=== PATIENT | female | born 1975 | race Two or more races ===

== ENCOUNTER 2017-09-12 19:49 | Emergency (ER) | payer MEDICARE, MEDICAID ==
[~2017-09-12] VITALS: Ht 167.6 cm; Wt 58.1 kg
[~2017-09-12 19:49] MED LIST: ATOR20TA PO; FLUO10CA15 PO; FURO80TA PO; HYDR-1421 PO; LEVO100T8 PO; METO25TA5 PO; NITR-52 PO; PRO125RS; ZOLP10TA PO
[2017-09-12 20:51] VITALS: BP 117/74
[2017-09-12 23:09] LABS: Basophils # (auto) 0 uL; Basophils % (auto) 0.9 % (0.0-2.0); Eosinophils # (auto) 0.2 uL; Eosinophils % (auto) 3.5 % (0.0-7.0); Hematocrit 36.6 % (36.0-46.0); Hemoglobin 11.4 g/dL (12.2-16.2); Lymphocytes # (auto) 0.5 uL; Lymphocytes % (auto) 10.4 % (10.0-50.0); Mean Corpuscular Hemoglobin 24.6 pg (28.0-32.0); Mean Corpuscular Volume 79.4 fL (80.0-100.0); Monocytes # (auto) 0.9 uL; Monocytes % (auto) 17.7 % (0.0-12.0); Neutrophils # (auto) 3.4 uL; Neutrophils % (auto) 67.5 % (37.0-80.0); Nucleated Red Blood Cells % 0.1 %; Platelet Count (auto) 174 10^3/uL (140-450); Red Blood Cells 4.61 10^6/uL (4.0-5.20); White Blood Cell 5.1 10^3/uL (4.4-10.8)
[2017-09-12 23:11] LABS: Albumin 3.9 g/dL (3.4-5.0); BUN/Creatinine Ratio 19.3; Calcium 8.4 mg/dL (8.5-10.1); Magnesium 2.4 mg/dL (1.6-2.6); Potassium 3.2 mmol/L (3.5-5.1)
[2017-09-12 23:20] LABS: Red Cell Distribution Width 30.4 % (11.8-14.3)
[2017-09-12 23:30] LABS: Total Protein 7.2 g/dL (6.4-8.2)
[2017-09-12] MEDS ORDERED: POTASSIUM CHL 10% (20 MEQ/15ML) 15ml ORAL SOLN PO ONE (23:45)
[2017-09-12 23:48] LABS: Bilirubin, Total 0.2 mg/dL (0.2-1.0)
[2017-09-13] MEDS ORDERED: POTASSIUM CHL 10% (20 MEQ/15ML) 15ml ORAL SOLN PO ONE (00:30)
== END 2017-09-13 02:43 | disposition left against medical advice (07) ==
LOC: ER 19:49
DX: E87.6 Hypokalemia (principal); R07.89 Other chest pain; I50.9 Heart failure, unspecified; E11.9 Type 2 diabetes mellitus without complications; E78.5 Hyperlipidemia, unspecified; Z90.49 Acquired absence of other specified parts of digestive tract; Z98.51 Tubal ligation status; Z87.891 Personal history of nicotine dependence; Z88.6 Allergy status to analgesic agent; Z88.8 Allergy status to other drugs, medicaments and biological substances
CPT/HCPCS: 36415; 71046; 80053; 83735; 83880; 84484; 85025; 93005

== ENCOUNTER 2017-11-28 19:05 | Emergency (ER) | payer MEDICARE, MEDICAID ==
[~2017-11-28] VITALS: Ht 157.5 cm; Wt 61.2 kg
[2017-11-28 20:13] LABS: Basophils # (auto) 0.1 uL; Basophils % (auto) 1.2 % (0.0-2.0); Eosinophils # (auto) 0.2 uL; Eosinophils % (auto) 3.9 % (0.0-7.0); Hemoglobin 9.2 g/dL (12.2-16.2); Lymphocytes # (auto) 0.9 uL; Lymphocytes % (auto) 21.2 % (10.0-50.0); Mean Corpuscular Hemoglobin 27.3 pg (28.0-32.0); Mean Corpuscular Hgb Conc. 31.9 g/dL (32.0-36.0); Mean Corpuscular Volume 85.5 fL (80.0-100.0); Monocytes # (auto) 0.5 uL; Monocytes % (auto) 10.6 % (0.0-12.0); Neutrophils # (auto) 2.7 uL; Neutrophils % (auto) 63.1 % (37.0-80.0); Platelet Count (auto) 233 10^3/uL (140-450); Red Blood Cells 3.39 10^6/uL (4.0-5.20); Red Cell Distribution Width 16.2 % (11.8-14.3); White Blood Cell 4.4 10^3/uL (4.4-10.8)
[2017-11-28 20:28] LABS: Albumin 3.5 g/dL (3.4-5.0); BUN/Creatinine Ratio 17.8; Calcium 8.5 mg/dL (8.5-10.1); Potassium 3.4 mmol/L (3.5-5.1)
[2017-11-28 20:29] LABS: Urine Bacteria FEW /hpf (None Seen); Urine Blood Negative /uL (Negative); Urine Specific Gravity 1.009 (1.001-1.035); Urine WBC <1 /hpf (0 - 5)
[2017-11-28 20:31] LABS: Bilirubin, Total 0.2 mg/dL (0.2-1.0); Total Protein 6.4 g/dL (6.4-8.2)
[2017-11-29] MEDS ORDERED: ONDANSETRON ODT 4 MG TAB PO ONE (01:00)
[2017-11-29] MEDS ORDERED: NALBUPHINE HCL 10 MG/1ml INJECTION IM ONE (01:00)
[2017-11-29 01:52] VITALS: BP 123/71
== END 2017-11-29 03:32 | disposition home or self-care (01) ==
LOC: ER 19:07
DX: R10.31 Right lower quadrant pain (principal); I50.9 Heart failure, unspecified; E11.9 Type 2 diabetes mellitus without complications; E78.5 Hyperlipidemia, unspecified; E07.89 Other specified disorders of thyroid; Z88.6 Allergy status to analgesic agent; Z88.8 Allergy status to other drugs, medicaments and biological substances; Z90.49 Acquired absence of other specified parts of digestive tract; Z98.51 Tubal ligation status; Z95.0 Presence of cardiac pacemaker; Z79.899 Other long term (current) drug therapy
CPT/HCPCS: 36415; 74176; 80053; 81001; 82150; 83690; 85025; 96372; 99285; J2300; Q0162

== ENCOUNTER 2018-01-23 14:34 | Emergency (ER) | payer MEDICARE, MEDICAID ==
[~2018-01-23] VITALS: Ht 157.5 cm; Wt 59.0 kg
[2018-01-23 15:47] LABS: Urine Bacteria NONE SEEN /hpf (None Seen); Urine Blood Negative /uL (Negative); Urine Mucus FEW (None Seen); Urine Specific Gravity 1.024 (1.001-1.035); Urine WBC <1 /hpf (0 - 5)
[2018-01-23] MEDS ORDERED: SODIUM CHLORIDE 0.9% 1,000 ML IV ONE (16:27)
[2018-01-23] MEDS ORDERED: traMADol HCL 50 MG TAB PO ONE (16:30)
[2018-01-23 17:16] LABS: Eosinophils # (auto) 0.1 uL; Eosinophils % (auto) 0.9 % (0.0-7.0); Hemoglobin 10.9 g/dL (12.2-16.2); Lymphocytes # (auto) 0.6 uL; Mean Corpuscular Hemoglobin 25.1 pg (28.0-32.0); Mean Corpuscular Hgb Conc. 31.1 g/dL (32.0-36.0); Red Blood Cells 4.34 10^6/uL (4.0-5.20)
[2018-01-23 17:18] LABS: Basophils # (auto) 0 uL; Basophils % (auto) 0.8 % (0.0-2.0); Lymphocytes % (auto) 8.7 % (10.0-50.0); Mean Corpuscular Volume 80.6 fL (80.0-100.0); Monocytes # (auto) 0.5 uL; Monocytes % (auto) 7.3 % (0.0-12.0); Neutrophils # (auto) 5.3 uL; Neutrophils % (auto) 82.3 % (37.0-80.0); Nucleated Red Blood Cells % 0.1 %; Platelet Count (auto) 292 10^3/uL (140-450); Red Cell Distribution Width 18.3 % (11.8-14.3); White Blood Cell 6.4 10^3/uL (4.4-10.8)
[2018-01-23 17:34] LABS: Alanine Aminotransferase 30 U/L (13-56); Anion Gap 9 (5-15); Aspartate Aminotransferase 30 U/L (15-37); BUN/Creatinine Ratio 19.5; Blood Urea Nitrogen 15 mg/dL (7-18); Calcium 8.4 mg/dL (8.5-10.1); Carbon Dioxide 27 mmol/L (21-32); Chloride 105 mmol/L (98-107); GFR African American 106 mL/min; GFR Non-African American 88 mL/min; Glucose 90 mg/dL (74-106); Potassium 4.1 mmol/L (3.5-5.1); Sodium 141 mmol/L (136-145)
[2018-01-23 17:40] LABS: Alkaline Phosphatase 119 U/L (45-117); Bilirubin, Total 0.3 mg/dL (0.2-1.0); Total Protein 7.8 g/dL (6.4-8.2)
[2018-01-23 17:44] LABS: INR 0.87 (0.9-1.15); Partial Thromboplastin Time 23.8 sec (22.64-33.71); Prothrombin Time 9.5 sec (9.37-12.3)
[2018-01-24] MEDS ORDERED: HYDROcodone-ACET 10/325MG TAB PO ONE (02:00)
[2018-01-24] MEDS ORDERED: LORazepam 0.5 MG TAB PO ONE (03:00)
[2018-01-24 03:38] VITALS: BP 151/101
== END 2018-01-24 04:16 | disposition home or self-care (01) ==
LOC: ER 14:40
DX: F41.9 Anxiety disorder, unspecified (principal); R10.9 Unspecified abdominal pain; I11.0 Hypertensive heart disease with heart failure; I50.9 Heart failure, unspecified; E11.9 Type 2 diabetes mellitus without complications; E78.5 Hyperlipidemia, unspecified; E07.9 Disorder of thyroid, unspecified; Z98.51 Tubal ligation status; Z87.891 Personal history of nicotine dependence; Z90.49 Acquired absence of other specified parts of digestive tract; Z88.6 Allergy status to analgesic agent; Z95.0 Presence of cardiac pacemaker; Z98.84 Bariatric surgery status; Z79.899 Other long term (current) drug therapy
CPT/HCPCS: 36415; 71046; 74176; 80053; 81001; 84484; 85025; 85610; 85730

== ENCOUNTER → 2018-04-17 | Outpatient (CLI) | payer MEDICARE, MEDICAID ==
[2018-04-17 10:14] LABS: Basophils # (auto) 0.1 uL; Eosinophils # (auto) 0.1 uL; Hemoglobin 9.8 g/dL (12.2-16.2); Lymphocytes # (auto) 0.6 uL; Mean Corpuscular Hemoglobin 24.3 pg (28.0-32.0); Monocytes # (auto) 0.3 uL; Neutrophils # (auto) 1.7 uL; Red Blood Cells 4.03 10^6/uL (4.0-5.20); White Blood Cell 2.7 10^3/uL (4.4-10.8)
[2018-04-17 10:18] LABS: Basophils % (auto) 2.6 % (0.0-2.0); Eosinophils % (auto) 2.1 % (0.0-7.0); Hematocrit 31.1 % (36.0-46.0); Lymphocytes % (auto) 21.5 % (10.0-50.0); Mean Corpuscular Hgb Conc. 31.5 g/dL (32.0-36.0); Mean Corpuscular Volume 77.2 fL (80.0-100.0); Monocytes % (auto) 10.1 % (0.0-12.0); Neutrophils % (auto) 63.7 % (37.0-80.0); Platelet Count (auto) 330 10^3/uL (140-450); Red Cell Distribution Width 17.2 % (11.8-14.3)
[2018-04-17 10:22] LABS: Urine Blood Negative /uL (Negative); Urine Specific Gravity 1.019 (1.001-1.035)
== END | disposition home or self-care (01) ==
LOC: LAB 09:39
PROVIDERS: ATTEND Internal Medicine
DX: I11.0 Hypertensive heart disease with heart failure (principal); I50.9 Heart failure, unspecified; E78.2 Mixed hyperlipidemia; Z87.891 Personal history of nicotine dependence; Z90.721 Acquired absence of ovaries, unilateral; Z86.73 Personal history of transient ischemic attack (TIA), and cerebral infarction without residual deficits; Z88.6 Allergy status to analgesic agent; Z88.8 Allergy status to other drugs, medicaments and biological substances; Z79.899 Other long term (current) drug therapy
CPT/HCPCS: 36415; 81003; 82306; 84443; 85025

== ENCOUNTER 2018-04-23 11:05 | Emergency (ER) | payer MEDICARE, MEDICAID ==
[~2018-04-23] VITALS: Ht 157.5 cm; Wt 68.0 kg
[2018-04-23 12:26] LABS: Urine WBC None Seen /hpf (0 - 5)
[2018-04-23 12:43] LABS: Urine Bacteria NONE SEEN /hpf (None Seen); Urine Blood Negative /uL (Negative); Urine Specific Gravity 1.007 (1.001-1.035)
[2018-04-23 12:44] LABS: Basophils # (auto) 0.1 uL; Eosinophils # (auto) 0.1 uL; Hemoglobin 8.5 g/dL (12.2-16.2); Lymphocytes # (auto) 0.6 uL; Mean Corpuscular Hemoglobin 23.7 pg (28.0-32.0); Monocytes # (auto) 0.4 uL; Neutrophils # (auto) 2.6 uL
[2018-04-23 12:46] LABS: Basophils % (auto) 1.6 % (0.0-2.0); Eosinophils % (auto) 2.5 % (0.0-7.0); Hematocrit 27.5 % (36.0-46.0); Lymphocytes % (auto) 16.6 % (10.0-50.0); Mean Corpuscular Hgb Conc. 30.7 g/dL (32.0-36.0); Mean Corpuscular Volume 77.1 fL (80.0-100.0); Monocytes % (auto) 9.8 % (0.0-12.0); Neutrophils % (auto) 69.5 % (37.0-80.0); Nucleated Red Blood Cells % 0.1 %; Platelet Count (auto) 236 10^3/uL (140-450); Red Blood Cells 3.57 10^6/uL (4.0-5.20); Red Cell Distribution Width 17.2 % (11.8-14.3); White Blood Cell 3.7 10^3/uL (4.4-10.8)
[2018-04-23 13:29] LABS: Albumin 3.1 g/dL (3.4-5.0); Anion Gap 9 (5-15); BUN/Creatinine Ratio 18.3; Blood Urea Nitrogen 13 mg/dL (7-18); Calcium 7.7 mg/dL (8.5-10.1); Carbon Dioxide 25 mmol/L (21-32); Chloride 109 mmol/L (98-107); GFR African American 117 mL/min; GFR Non-African American 96 mL/min; Glucose 65 mg/dL (74-106); Potassium 3.7 mmol/L (3.5-5.1); Sodium 143 mmol/L (136-145)
[2018-04-23 13:35] VITALS: BP 124/90
[2018-04-23 13:39] LABS: Alanine Aminotransferase 20 U/L (13-56); Alkaline Phosphatase 78 U/L (45-117); Aspartate Aminotransferase 19 U/L (15-37); Bilirubin, Total 0.4 mg/dL (0.2-1.0); Total Protein 6.1 g/dL (6.4-8.2)
== END 2018-04-23 15:14 | disposition home or self-care (01) ==
LOC: ER 11:07
DX: R07.89 Other chest pain (principal); D64.9 Anemia, unspecified; I11.0 Hypertensive heart disease with heart failure; I10 Essential (primary) hypertension; E11.9 Type 2 diabetes mellitus without complications; E78.5 Hyperlipidemia, unspecified; Z86.73 Personal history of transient ischemic attack (TIA), and cerebral infarction without residual deficits; Z90.49 Acquired absence of other specified parts of digestive tract; Z98.51 Tubal ligation status; Z87.891 Personal history of nicotine dependence
CPT/HCPCS: 36415; 80053; 81001; 84484; 85025; 93005

== ENCOUNTER 2018-08-17 16:18 | Emergency (ER) | payer MEDICARE, MEDICAID ==
[~2018-08-17] VITALS: Ht 157.5 cm; Wt 68.0 kg
[2018-08-17 17:01] LABS: Basophils # (auto) 0.1 uL; Eosinophils # (auto) 0 uL; Monocytes # (auto) 0.5 uL; Red Cell Distribution Width 19.4 % (11.8-14.3)
[2018-08-17 17:03] LABS: Basophils % (auto) 1.1 % (0.0-2.0); Eosinophils % (auto) 0.1 % (0.0-7.0); Hematocrit 30.1 % (36.0-46.0); Hemoglobin 9.2 g/dL (12.2-16.2); Lymphocytes # (auto) 0.6 uL; Lymphocytes % (auto) 9.5 % (10.0-50.0); Mean Corpuscular Hemoglobin 21.9 pg (28.0-32.0); Mean Corpuscular Hgb Conc. 30.5 g/dL (32.0-36.0); Mean Corpuscular Volume 71.6 fL (80.0-100.0); Monocytes % (auto) 7.5 % (0.0-12.0); Neutrophils # (auto) 5.2 uL; Neutrophils % (auto) 81.8 % (37.0-80.0); Platelet Count (auto) 276 10^3/uL (140-450); White Blood Cell 6.3 10^3/uL (4.4-10.8)
[2018-08-17 17:23] LABS: Albumin 4.1 g/dL (3.4-5.0); BUN/Creatinine Ratio 18.2; Calcium 8.5 mg/dL (8.5-10.1); Potassium 3.5 mmol/L (3.5-5.1)
[2018-08-17 17:25] LABS: Bilirubin, Total 0.4 mg/dL (0.2-1.0); Total Protein 7.6 g/dL (6.4-8.2)
[2018-08-17 18:12] LABS: Urine Bacteria NONE SEEN /hpf (None Seen); Urine Blood Negative /uL (Negative); Urine Mucus FEW (None Seen); Urine Specific Gravity 1.023 (1.001-1.035); Urine WBC 1 /hpf (0 - 5)
[2018-08-17] MEDS ORDERED: SODIUM CHLORIDE 0.9% 1,000 ML IVB ONE (18:19)
[2018-08-17] MEDS ORDERED: ONDANSETRON HCL 4 MG/2 ML VIAL IV ONE (18:30)
[2018-08-17 19:19] LABS: INR 0.9 (0.9-1.15); Magnesium 2.4 mg/dL (1.6-2.6); Partial Thromboplastin Time 23.3 sec (23.78-33.04); Prothrombin Time 9.7 sec (9.27-12.13)
[2018-08-17] MEDS ORDERED: KETOROLAC TROMETH 30 MG/ML 1ML VIAL IV ONE (20:45)
[2018-08-17] MEDS ORDERED: PROMETHAZINE HCL 25 MG/ML 1ML IV ONE (20:45)
[2018-08-17 23:05] VITALS: BP 120/69
== END 2018-08-17 23:08 | disposition home or self-care (01) ==
LOC: ER 16:25
DX: R10.30 Lower abdominal pain, unspecified (principal); D50.9 Iron deficiency anemia, unspecified; I11.0 Hypertensive heart disease with heart failure; I50.9 Heart failure, unspecified; E07.89 Other specified disorders of thyroid; Z88.6 Allergy status to analgesic agent; Z88.8 Allergy status to other drugs, medicaments and biological substances; Z90.49 Acquired absence of other specified parts of digestive tract; Z98.51 Tubal ligation status; Z95.0 Presence of cardiac pacemaker
CPT/HCPCS: 36415; 74176; 80053; 81001; 81025; 82150; 83690; 83735; 83880; 85025; 85610; 85730; 94761; 96361; 96374; 96375; 99284; J1885; J2405; J2550; J7030

== ENCOUNTER 2019-10-24 13:28 | Emergency (ER) | payer MEDICARE, MEDICAID ==
[~2019-10-24] VITALS: Ht 160 cm; Wt 73.5 kg
[~2019-10-24 13:28] MED LIST changes: +FURO1TAB32 PO; -FURO80TA PO
[2019-10-24] MEDS ORDERED: MORPHINE SULFATE 4 MG/ML SYR/VIAL IV ONE (14:00)
[2019-10-24] MEDS ORDERED: ONDANSETRON HCL 4 MG/2 ML VIAL IV ONE (14:00)
[2019-10-24] MEDS ORDERED: methylPREDNISolone SOD SUCC 125 MG/2 ML VL IV ONE (14:00)
[2019-10-24 14:21] LABS: Basophils # (auto) 0 uL; Eosinophils # (auto) 0 uL; Hemoglobin 9.7 g/dL (12.2-16.2); Lymphocytes # (auto) 1.1 uL; Monocytes # (auto) 0.6 uL; Neutrophils # (auto) 3.6 uL; Nucleated Red Blood Cells % 0.1 %; White Blood Cell 5.4 10^3/uL (4.4-10.8)
[2019-10-24 14:25] LABS: Basophils % (auto) 0.9 % (0.0-2.0); Eosinophils % (auto) 0.6 % (0.0-7.0); Hematocrit 31.5 % (36.0-46.0); Lymphocytes % (auto) 20.6 % (10.0-50.0); Mean Corpuscular Hgb Conc. 30.9 g/dL (32.0-36.0); Mean Corpuscular Volume 80.8 fL (80.0-100.0); Monocytes % (auto) 11.2 % (0.0-12.0); Neutrophils % (auto) 66.7 % (37.0-80.0); Platelet Count (auto) 313 10^3/uL (140-450)
[2019-10-24 14:41] LABS: Albumin 3.7 g/dL (3.4-5.0); Anion Gap 5 (5-15); Blood Urea Nitrogen 10 mg/dL (7-18); Calcium 8.7 mg/dL (8.5-10.1); Carbon Dioxide 25 mmol/L (21-32); Chloride 111 mmol/L (98-107); Glucose 88 mg/dL (74-106); Magnesium 2.5 mg/dL (1.6-2.6); Sodium 141 mmol/L (136-145)
[2019-10-24 14:46] LABS: Alanine Aminotransferase 24 U/L (13-56); Alkaline Phosphatase 88 U/L (45-117); Aspartate Aminotransferase 19 U/L (15-37); BUN/Creatinine Ratio 11.1; Bilirubin, Total 0.3 mg/dL (0.2-1.0); GFR African American 88 mL/min; GFR Non-African American 73 mL/min; Total Protein 7.2 g/dL (6.4-8.2)
[2019-10-24 16:00] VITALS: BP 128/85
[2019-10-24] MEDS ORDERED: diphenhdrAMINE HCL 50 MG/1 ML VL IV ONE (16:45)
== END 2019-10-24 17:40 | disposition home or self-care (01) ==
LOC: ER 13:34
DX: R07.89 Other chest pain (principal); I11.0 Hypertensive heart disease with heart failure; I50.9 Heart failure, unspecified; E78.5 Hyperlipidemia, unspecified; I25.2 Old myocardial infarction; Z86.73 Personal history of transient ischemic attack (TIA), and cerebral infarction without residual deficits; Z98.51 Tubal ligation status; Z90.49 Acquired absence of other specified parts of digestive tract; Z95.0 Presence of cardiac pacemaker; Z88.8 Allergy status to other drugs, medicaments and biological substances; Z88.6 Allergy status to analgesic agent; Z79.899 Other long term (current) drug therapy
CPT/HCPCS: 36415; 71046; 80053; 83735; 83880; 84484; 85025; 93005; 96374; 96375; 99285; J1200; J2270; J2405; J2930

== ENCOUNTER 2020-12-09 15:48 | Emergency (ER) | payer MEDICARE, MEDICAID ==
[~2020-12-09] VITALS: Ht 160 cm; Wt 63.0 kg
[2020-12-09 15:51] VITALS: BP 113/89
[2020-12-09 16:53] LABS: Basophils # (auto) 0.1 10 ^3/uL (0-0.2); Basophils % (auto) 0.9 % (0.0-2.0); Eosinophils # (auto) 0.1 10 ^3/uL (0-0.8); Eosinophils % (auto) 1.4 % (0.0-7.0); Hematocrit 32.6 % (36.0-46.0); Hemoglobin 10.7 g/dL (12.2-16.2); Lymphocytes # (auto) 0.7 10 ^3/uL (0.4-5.4); Mean Corpuscular Hemoglobin 28.7 pg (28.0-32.0); Monocytes # (auto) 0.4 10 ^3/uL (0-1.3); Monocytes % (auto) 5.5 % (0.0-12.0); Neutrophils # (auto) 5.5 10 ^3/uL (1.6-8.6); Neutrophils % (auto) 82.2 % (37.0-80.0); Nucleated Red Blood Cells % 0.1 %; Platelet Count (auto) 228 10^3/uL (140-450); Red Blood Cells 3.75 10^6/uL (4.0-5.20); Red Cell Distribution Width 16.6 % (11.8-14.3); White Blood Cell 6.6 10^3/uL (4.4-10.8)
[2020-12-09 17:15] LABS: Alanine Aminotransferase 21 U/L (13-56); Albumin 3.8 g/dL (3.4-5.0); Anion Gap 8 (5-15); Aspartate Aminotransferase 22 U/L (15-37); BUN/Creatinine Ratio 14.4; Blood Urea Nitrogen 13 mg/dL (7-18); Calcium 8.1 mg/dL (8.5-10.1); Carbon Dioxide 27 mmol/L (21-32); Chloride 103 mmol/L (98-107); GFR African American 88 mL/min; GFR Non-African American 73 mL/min; Glucose 94 mg/dL (74-106); Potassium 3.4 mmol/L (3.5-5.1); Sodium 138 mmol/L (136-145)
[2020-12-09 17:17] LABS: INR 1.01 (0.9-1.15); Partial Thromboplastin Time 24.8 sec (23.0-31.2)
[2020-12-09 17:24] LABS: Alkaline Phosphatase 103 U/L (45-117); Bilirubin, Total 0.2 mg/dL (0.2-1.0); Total Protein 6.7 g/dL (6.4-8.2)
== END 2020-12-09 19:05 | disposition left against medical advice (07) ==
LOC: ER 15:48
DX: R07.9 Chest pain, unspecified (principal); R11.0 Nausea; Z53.21 Procedure and treatment not carried out due to patient leaving prior to being seen by health care provider
CPT/HCPCS: 36415; 71046; 80053; 83735; 84484; 85025; 85610; 85730; 93005

== ENCOUNTER 2024-08-05 20:12 | Inpatient (IN) | payer MEDICARE, MEDICAID ==
[~2024-08-05] VITALS: Ht 160 cm; Wt 58.2 kg
[2024-08-05 20:40] LABS: Urine Bacteria None Seen /hpf (None Seen)
--- NOTE | 2024-08-05 20:45 | ED.PDOC ---
HPI Comments PMHx: CHF, TIA, DC, CVA, angina, HTN, lupus, anemia, thyroid, HLD PSHx: pacemaker, partial hysterectomy, , tubal ligation. cholecystectomy Social hx: Pt denies alcohol, tobacco, and illicit drug use Meds: Entresto, Simvastatin, Metoprolol, Plaquenil, Carvedilol, Morphine, Zofran, muscle relaxers Allergies: Reglan, Tramadol, ASA, Motrin, Vitals T: 99.1F RR: 14 HR: 97 BP: 146/111 O2: 97% on RA HPI: Poor Historian. This 49-year-old female presents with a one day history of midsternal chest pain with some radiation to the left neck. Patient has associated vomiting and dizziness and diaphoresis at that time. This happened at rest. No particular alleviating or precipitating factors. She says she has similar chest pains in the past but never this severe. She follows up with cardiology and states compliance with all her medications. REVIEW OF SYSTEMS: CONSTITUTIONAL: Denies acute: fever, chills, generalized weakness. HEAD: Denies acute: headache, photophobia Eyes: Denies acute: Double vision, vision loss, eye pain, eye discharge. EARS: Denies acute: tinnitus, hearing loss, ear discharge, ear pain, THROAT: Denies acute: sore throat, swelling, difficulty swallowing , pain with swallowing, change in voice. NECK: Denies acute: neck pain, neck swelling, stiff neck. HEART: Denies acute : palpitations, LUNGS: Denies acute: SOB, wheezing, cough, hemoptysis ABDOMEN: Denies acute: abdominal pain, Nausea, diarrhea, melena , hematemesis, hematochezia SKIN: Denies acute: rash, redness, lesions, itchiness. EXTREMITIES: Denies acute: calf pain, numbness, tingling, weakness, denies pain in extremity. Denies acute: Low back pain. Neuro: Denies acute: focal neurological deficit, motor or sensory focal neurological deficit, tremors, seizure like activity, confusion, change in mental status, loss of bowel or bladder function, cauda equina like symptoms. : Denies acute: dysuria, hematuria, flank pain, increase in urinary frequency. PSYCH: Denies acute: hallucination, suicidal ideation, homicidal ideation. FEMALE: Denies acute: abnormal vaginal bleeding, foul odor, unusual discharge. PHYSICAL EXAM: General: no acute distress, awake and alert. Head: normocephalic, atraumatic. Neck: supple, trachea is midline, no swelling. Throat: Normal phonation. Eyes:, no erythema, no purulent discharge, no proptosis, no icterus. Heart: regular rate, regular rhythm, no significant murmur appreciated. Lungs: no apparent respiratory distress, Able to speak in full sentences. No wheezing, no rhonchi, no crackles. No stridors Clear to auscultation bilaterally. Abdomen: non tender to palpation, non distended, soft, no guarding, no rebound, + bowel sounds. Neuro: Awake, Alert, oriented to name, self, situation, follows commands GCS=15. Speech is normal. Skin: no petechia, no purpura, no cyanosis, non-pale, not jaundice. Lower extremities: --no - Pitting edema no deformity, no focal swelling, no calf TTP. Patient is wearing a left lower extremity ankle boot. History of recent ankle fracture. Makes eye contact. moves all four extremities. Face: no apparent facial droop. Ambulating in the ED independently. Chief Complaint: Chest Pain Time Seen by MD: 20:38 Primary Care Provider: tonya Reviewed Notes: Nurses Notes, Medications, Allergies Allergies: Coded Allergies: Aspirin (Verified Allergy, Severe, 06/19/11) Metoclopramide (Verified Allergy, Intermediate, 06/18/11) Tramadol (Verified Allergy, Intermediate, 06/18/11) Home Meds Active Scripts Nitrofurantoin (Nitrofurantoin) 100 Mg Cap, 1 CAP PO BID, #10 CAP Prov:ALLIE MENDEZ MD 08/19/17 Reported Medications Fluoxetine Hcl (Pmdd) (Fluoxetine) 10 Mg Cap, 1 CAP PO DAILY, #30 CAP 2 Refills 08/18/17 Zolpidem Tartrate (Ambien) 10 Mg Tab, 1 TAB PO QPM, #30 TAB 5 Refills 08/18/17 Levothyroxine Sodium (Levothyroxine Sodium) 100 Mcg Tab, 100 MCG PO QAM for 30 Days, MCG 08/18/17 Metoprolol Tartrate (Metoprolol Tartrate) 25 Mg Tab, 25 MG PO BID for 30 Days, MG 12/8/17 Atorvastatin Calcium (Lipitor) 20 Mg Tab, 1 TAB PO DAILY, #90 TAB 1 Refill 08/18/17 Furosemide (Lasix) 80 Mg Tab, 80 MG PO DAILY, TAB 08/18/17 Promethazine Hcl (Promethegan) 12.5 Mg Sup 07/18/12 Hydrocodone-Acetaminophen (Vicodin) 1 Tab Tab, 1 MG PO PRN for MILD PAIN OR TEMP>100.4 07/18/12 Information Source: Patient Mode of Arrival: Ambulatory Severity: Mild Timing: Hours Duration: Since onset Location: Substernal Radiation: Neck (left) Quality: Other Onset: At Rest Cardiac Risk Factors: Hyperlipidemia, HTN PE Risk Factors: None History of: Similar pain in past, DC, Angina Modifying Factors: Nothing Associated Signs and Symptoms: Other Past Medical History PAST MEDICAL HISTORY: Angina, CHF, CVA, High Lipids, HTN, DC, Thyroid, TIA Surgical History: BTL, Cholecystectomy, , Pacemaker, Tubal Ligation CARE SERVICES MANAGER History: No Pertinent CARE SERVICES MANAGER History Family History Family History: Family hx of Cancer Family History (Other): SLE Social History Smoker: Non-Smoker, Quit Greater Than 1 Year Alcohol: Denies ETOH Use Drugs: Denies Drug Use Lives In: Home Was a procedure done? Was a procedure done?: No CP Differential Dx Differential Diagnosis: Anxiety / Panic Attack, Electrolyte Disorder, Heart Failure, N/A Differential Diagnosis: Other (Ddx include but not limitied to gastritis, musculoskeletal pain, radiculopathy, atypical chest pain, dissection, aneurysm, ACS, unstable angina, hiatal hernia, GERD, anxiety, costochondritis, PE, pneumothroax, neoplasm, cardiac ischemia, drug abuse, anemia.) X-Ray, Labs, Meds, VS Vital Signs Date Time Temp Pulse Resp B/P (MAP) Pulse Ox O2 Delivery O2 Flow Rate FiO2 08/05/24 22:06 92 08/05/24 20:27 99.1 97 14 146/111 (123) 97 08/05/24 20:18 91 Lab Test 08/05/24 21:32 08/05/24 21:29 08/05/24 20:39 08/05/24 20:30 Range/Units Lactic Acid Level 1.7 0.4-2.0 mmol/L Troponin I High Sensitivity 3 L 4 </=34 ng/L White Blood Count 11.7 H 4.4-10.8 10^3/uL Red Blood Count 4.97 4.0-5.20 10^6/uL Hemoglobin 11.8 L 12.2-16.2 g/dL Hematocrit 37.4 36.0-46.0 % Mean Corpuscular Volume 75.3 L 80.0-100.0 fL Mean Corpuscular Hemoglobin 23.7 L 28.0-32.0 pg Mean Corpuscular Hemoglobin Concent 31.5 L 32.0-36.0 g/dL Red Cell Distribution Width 18.2 H 11.8-14.3 % Platelet Count 308 140-450 10^3/uL Mean Platelet Volume 7.5 6.9-10.8 fL Neutrophils (%) (Auto) 85.2 H 37.0-80.0 % Lymphocytes (%) (Auto) 9.8 L 10.0-50.0 % Monocytes (%) (Auto) 4.2 0.0-12.0 % Eosinophils (%) (Auto) 0.4 0.0-7.0 % Basophils (%) (Auto) 0.4 0.0-2.0 % Neutrophils # (Auto) 10.0 H 1.6-8.6 10 ^3/uL Lymphocytes # (Auto) 1.1 0.4-5.4 10 ^3/uL Monocytes # (Auto) 0.5 0-1.3 10 ^3/uL Eosinophils # (Auto) 0 0-0.8 10 ^3/uL Basophils # (Auto) 0 0-0.2 10 ^3/uL Nucleated Red Blood Cells 0.0 % Prothrombin Time 10.3 9.3-11.8 sec Prothrombin Time INR 0.97 0.9-1.15 Activated Partial Thromboplast Time 24.5 24.5-34.5 SEC Sodium Level 135 L 136-145 mmol/L Potassium Level 2.9 L 3.5-5.1 mmol/L Chloride Level 96 L 98-107 mmol/L Carbon Dioxide Level 29 20-31 mmol/L Anion Gap 10 5-15 Blood Urea Nitrogen 11 9-23 mg/dL Creatinine 1.04 H 0.550-1.02 mg/dL Glomerular Filtration Rate Calc 67 >90 mL/min BUN/Creatinine Ratio 10.6 10.0-20.0 Serum Glucose 117 H 74-106 mg/dL Calcium Level 10.2 8.7-10.4 mg/dL Magnesium Level 2.2 1.6-2.6 mg/dL Total Bilirubin 0.3 0.2-1.0 mg/dL Aspartate Amino Transferase (AST) 21 13-40 U/L Alanine Aminotransferase (ALT) 30 7-40 U/L Alkaline Phosphatase 173 H 46-116 U/L B-Type Natriuretic Peptide 26.89 0-100 pg/mL Total Protein 7.8 5.7-8.2 g/dL Albumin 5.2 H 3.2-4.8 g/dL Lipase 26 12-53 U/L Urine Color Light-yellow Yellow Urine Clarity Clear Clear Urine pH 6.0 5.0-9.0 Urine Specific [place] 1.010 1.001-1.035 Urine Protein Negative Negative Urine Ketones Negative Negative Urine Blood Negative Negative /uL Urine Nitrite Negative Negative Urine Bilirubin Negative Negative Urine Urobilinogen Normal Negative mg/dL Urine Leukocyte Esterase Negative Negative /uL Urine RBC <1 0 - 4 /hpf Urine WBC 5 0 - 5 /hpf Urine Squamous Epithelial Cells Few <5 /hpf Urine Bacteria None seen None Seen /hpf Urine Glucose Normal Normal mg/dL Urine Opiates Screen Pending Urine Fentanyl Screen Pending Urine Barbiturates Screen Pending Urine Phencyclidine Screen Pending Urine Amphetamines Screen Pending Urine Benzodiazepines Screen Pending Urine Cocaine Screen Pending Urine Cannabinoids Screen Pending [place] [id number] Ph: [phone] DIAGNOSTIC IMAGING Diagnostic Imaging Report : [id number] Signed PATIENT: KAMALA CARLSON ACCT: [id number] UNIT: [id number] : 1975 LOC: ER ROOM / BED: / AGE / SEX: 49 / F ADM STATUS: REG ER SERVICE 18 ORDERING PHYSICIAN: IVELISSE ACEVES MD PROCEDURE(s): CXRP - CHEST PORTABLE REASON: CP ORDER NUMBER(s): [id number], ACCESSION NUMBER(s): [id number] CHEST RADIOGRAPH Indication: CP Technique: Single frontal view of the chest was obtained Comparison: None FINDINGS: Lines and Tubes: Dual-chamber pacemaker in place with pulse generator over the left chest. Lungs: No focal consolidation. Pleura: No effusion. No pneumothorax. Cardiomediastinal contours: Unremarkable Bones: No acute osseous abnormality. IMPRESSION: 1. No acute cardiopulmonary disease. ATED BY: MARLON PETTIT Jr., DO DICTATED DATE/TIME: 08/05/242105 SIGNED BY: MARLON PETTIT Jr., SIGNED DATE/TIME: 08/05/242105 CC: Time of 1ST Reevaluation: 21:08 Reevaluation 1ST: Unchanged Patient Education/Counseling: Diagnosis, Treatment Family Education/Counseling: No Family Present Comments Patient presented with the above HPI.---cardiac---workup was initiated. patient was found with the above mentioned diagnosis. Patient was given: Potassium replacement Patient ED course and VS have been stabilized. Patient has been reassessed in the ED and remained in a stable condition. Pertinent incidental findings were discussed with the patient and/or family. Patient/family voices understanding and is agreeable with plan. Patient has been observed in the ED adequate length of time to insure improvement/stability. patient was admitted to the medicine team for further evaluation and treatment of their presentation. All the reports of any imaging studies that were ordered by myself were reviewed by myself. Departure 1 Departure Time of Disposition: 21:10 Impression: Primary Impression: Chest pain Additional Impression: Hypokalemia Disposition: ADMITTED INPATIENT Admit to: [facility] Condition: Guarded Discharged With: Self Critical Care Note Critical Care Time?: No Heart Score Heart Score: Heart Score Response (Comments) Value History Moderate Suspicious 1 EKG Normal 0 Age 45-64 1 Risk Factors >3 or Hx ASHD 2 Troponin >3 x's Normal limit 2 Total 6 I personally scribed for YAMILET MORALES DO ([email or web address]) on 08/05/24 at 20:45. Electronically submitted by Lashonda Gillespie ([employer]). I personally scribed for YAMILET MORALES DO ([email or web address]) on 08/05/24 at 20:53. Electronically submitted by Lashonda Gillespie ([employer]). I personally scribed for YAMILET MORALES DO ([email or web address]) on 08/05/24 at 21:13. Electronically submitted by Lashonda Gillespie ([employer]). YAMILET MORALES DO Aug 05, 2024 20:45
[2024-08-05 21:02] LABS: Urine Blood Negative /uL (Negative); Urine Clarity Clear (Clear); Urine Color Light-Yellow (Yellow); Urine Protein, UAD Negative (Negative); Urine Urobilinogen Normal (Negative); Urine WBC 5 /hpf (0 - 5)
--- NOTE | 2024-08-05 21:08 | DVH ---
CHEST RADIOGRAPH Indication: CP Technique: Single frontal view of the chest was obtained Comparison: None FINDINGS: Lines and Tubes: Dual-chamber pacemaker in place with pulse generator over the left chest. Lungs: No focal consolidation. Pleura: No effusion. No pneumothorax. Cardiomediastinal contours: Unremarkable Bones: No acute osseous abnormality. IMPRESSION: 1. No acute cardiopulmonary disease.
[2024-08-05 21:10] LABS: Monocytes # (auto) 0.5 10 ^3/uL (0-1.3)
[2024-08-05 21:12] LABS: Basophils # (auto) 0 10 ^3/uL (0-0.2); Basophils % (auto) 0.4 % (0.0-2.0); Eosinophils # (auto) 0 10 ^3/uL (0-0.8); Eosinophils % (auto) 0.4 % (0.0-7.0); Hematocrit 37.4 % (36.0-46.0); Hemoglobin 11.8 g/dL (12.2-16.2); Lymphocytes # (auto) 1.1 10 ^3/uL (0.4-5.4); Lymphocytes % (auto) 9.8 % (10.0-50.0); Mean Corpuscular Hemoglobin 23.7 pg (28.0-32.0); Mean Corpuscular Hgb Conc. 31.5 g/dL (32.0-36.0); Mean Corpuscular Volume 75.3 fL (80.0-100.0); Monocytes % (auto) 4.2 % (0.0-12.0); Neutrophils % (auto) 85.2 % (37.0-80.0); Platelet Count (auto) 308 10^3/uL (140-450); Red Blood Cells 4.97 10^6/uL (4.0-5.20); Red Cell Distribution Width 18.2 % (11.8-14.3); White Blood Cell 11.7 10^3/uL (4.4-10.8)
[2024-08-05 21:14] LABS: Alanine Aminotransferase 30 U/L (7-40); Albumin 5.2 g/dL (3.2-4.8); Alkaline Phosphatase 173 U/L (46-116); Anion Gap 10 (5-15); Aspartate Aminotransferase 21 U/L (13-40); BUN/Creatinine Ratio 10.6 (10.0-20.0); Blood Urea Nitrogen 11 mg/dL (9-23); Calcium 10.2 mg/dL (8.7-10.4); Carbon Dioxide 29 mmol/L (20-31); Chloride 96 mmol/L (98-107); Glucose 117 mg/dL (74-106); Potassium 2.9 mmol/L (3.5-5.1); Sodium 135 mmol/L (136-145)
[2024-08-05 21:15] LABS: Bilirubin, Total 0.3 mg/dL (0.2-1.0); Total Protein 7.8 g/dL (5.7-8.2)
[2024-08-05 21:19] LABS: INR 0.97 (0.9-1.15); Partial Thromboplastin Time 24.5 SEC (24.5-34.5); Prothrombin Time 10.3 sec (9.3-11.8)
[2024-08-05] MEDS: POTASSIUM CHL 20 Meq TABLET PO ONE (22:15)
[2024-08-05] MEDS ORDERED: ACETAMINOPHEN 325 MG TAB PO PRN ×2 (23:00→23:15)
[2024-08-05] MEDS ORDERED: DOCUSATE SOD 100 MG CAP PO PRN (23:00)
[2024-08-05] MEDS ORDERED: NITROGLYCERIN 0.4 MG SL TAB SL PRN ×2 (23:00→23:15)
[2024-08-05] MEDS ORDERED: MORPHINE SULFATE INJ 2 MG/ml SYRG IV PRN ×2 (23:00→23:15)
--- NOTE | 2024-08-05 23:13 | DVHPN2 ---
Progress Note - Dictate vital signs Vital Sign Date Time Temp Pulse Resp B/P (MAP) Pulse Ox O2 Delivery O2 Flow Rate FiO2 08/05/24 22:06 92 08/05/24 20:27 99.1 14 146/111 (123) 97 medications Current Medications Medications Dose Ordered Sig/Keyur Route Start Time Stop Time Status Last Admin Dose Admin Sodium Chloride 10 ml Q8HR IV 08/06/24 06:00 Acetaminophen 325 mg Q4HP PRN PO 08/05/24 23:00 Docusate Sodium 100 mg BIDPRN PRN PO 08/05/24 23:00 Morphine Sulfate 2 mg Q4HPRN PRN IV 08/05/24 23:00 Nitroglycerin 0.4 mg Q5MINP PRN SL 08/05/24 23:00 Morphine Sulfate 2 mg Q30M PRN IV 08/05/24 23:00 Acetaminophen/ Hydrocodone Bitart 1 tab Q4HP PRN PO 08/05/24 23:15 UNV Temazepam 15 mg QHSP PRN PO 08/05/24 23:15 UNV Ondansetron HCl 4 mg Q4HP PRN IV 08/05/24 23:15 UNV Acetaminophen 650 mg Q6HP PRN PO 08/05/24 23:15 UNV Morphine Sulfate 2 mg Q4HPRN PRN IV 08/05/24 23:15 UNV Enoxaparin Sodium 40 mg DAILY SC 08/06/24 10:00 UNV Nitroglycerin 0.4 mg Q5MINP PRN SL 08/05/24 23:15 UNV Morphine Sulfate 2 mg Q30M PRN IV 08/05/24 23:15 UNV laboratory and microbiology Laboratory Tests 08/05/24 20:39 Test 08/05/24 20:39 Range/Units Serum Glucose 117 H 74-106 mg/dL DEMETRIUS GARCIA MEDICAL CLAIMS ASSISTANT Aug 05, 2024 23:13
[2024-08-05] MEDS ORDERED: HYDROcodone-ACET 5/325MG TAB PO PRN (23:15)
[2024-08-05] MEDS ORDERED: TEMAZEPAM 15 MG CAP PO PRN (23:15)
[2024-08-05 23:30] LABS: Amphetamine Screen, Urine Neg (NEGATIVE); Barbiturate Scree,Urine Neg (NEGATIVE); Benzodiazephine Screen, Urine Neg (NEGATIVE); Cocaine Screen, Urine Neg (NEGATIVE)
[2024-08-05 23:31] LABS: Opiate Scree,Urine Pos (NEGATIVE); Phencyclidine Screen, Urine Neg (NEGATIVE)
[2024-08-05 23:32] LABS: Cannabinoid Screen, Urine Pos (NEGATIVE)
--- NOTE | 2024-08-05 23:47 | DVHHPRES ---
History of Present Illness Resident Creating Document: TALI MURDOCK RESIDENT History of Present Illness Patient is 49 years old female with past medical history of congestive heart failure, hypothyroidism, OH, lupus came with a complaint of chest pain started around 4:00 p.m.. As per patient patient started having chest pain around 4:00 p.m. today which was sudden onset, in the lower sternal region, 9/10 in severity, stabbing or pressure-like, radiating to the neck, increased with movement. Patient also complained of feeling some short of breath associated with sweating. On further discussion patient reported nausea and vomiting many times which was mainly watery content, denied any blood. Patient also endorsed palpitation like pounding her heart. Patient also endorsed some dizziness and headache but no loss of consciousness. Patient said she had a same kind of chest pain years before but could not mentioned any exact time. Patient also recently went to [facility] few days back for lower back pain and as per patient she was diagnosed with UTI. Initial lab workup revealed leukocytosis with WBC 11.7, mild anemia hemoglobin 11.8, hypokalemia potassium 2.9, serum creatinine 1.04, GFR 67, magnesium 2.2, elevated alkaline phosphatase 173, troponin I negative, 3> 4, BNP 26, lipase 26. EKG revealed sinus rhythm with the occasional premature ventricular contraction. Home medications include atorvastatin 20 mg, fluoxetine 10 mg, furosemide 80 mg daily, hydrocodone acetaminophen, levothyroxine 100 mcg, metoprolol tartrate 25 mcg b.i.d., promethazine 12.5 mg p.r.n., zolpidem Past Medical History Congestive heart failure, history of OH, status post pacemaker, lupus Past Surgical History History of pacemaker placement, status post cholecystectomy when patient was 20 years old Past Social History , patient lives alone, denies smoking, alcoholism, patient reported using weed last 1 was yesterday Review of Systems Review of Systems Allergy- aspirin, medical bromide, tramadol Personal History/ Social History- Patient was seen today at the bedside. Patient reported having some chest pain 8/10, nausea Respiratory- denies cough or wheezing Gastrointestinal- denies any rectal bleeding, nausea or vomiting Musculoskeletal-denies acute joint swelling or tenderness or redness Neurological- denies acute dysarthria, dysphagia, change in vision Skin- denies acute rash or purpura Allergies: Coded Allergies: Aspirin (Verified Allergy, Severe, 06/19/11) Metoclopramide (Verified Allergy, Intermediate, 06/18/11) Tramadol (Verified Allergy, Intermediate, 06/18/11) Famotidine (Verified Allergy, Unknown, 08/06/24) Medications Current Medications Medications Dose Ordered Sig/Keyur Route Start Time Stop Time Status Last Admin Dose Admin Sodium Chloride 10 ml Q8HR IV 08/06/24 06:00 Docusate Sodium 100 mg BIDPRN PRN PO 08/05/24 23:00 Morphine Sulfate 2 mg Q4HPRN PRN IV 08/05/24 23:00 Nitroglycerin 0.4 mg Q5MINP PRN SL 08/05/24 23:00 Morphine Sulfate 2 mg Q30M PRN IV 08/05/24 23:00 Acetaminophen/ Hydrocodone Bitart 1 tab Q4HP PRN PO 08/05/24 23:15 Temazepam 15 mg QHSP PRN PO 08/05/24 23:15 Ondansetron HCl 4 mg Q4HP PRN IV 08/05/24 23:15 Acetaminophen 650 mg Q6HP PRN PO 08/05/24 23:15 Morphine Sulfate 2 mg Q4HPRN PRN IV 08/05/24 23:15 Enoxaparin Sodium 40 mg DAILY SC 08/06/24 10:00 Nitroglycerin 0.4 mg Q5MINP PRN SL 08/05/24 23:15 Morphine Sulfate 2 mg Q30M PRN IV 08/05/24 23:15 Atorvastatin Calcium 20 mg DAILY PO 08/06/24 10:00 Levothyroxine Sodium 100 mcg QAM PO 08/06/24 07:00 Metoprolol Tartrate 25 mg BID PO 08/06/24 10:00 Fluoxetine HCl 10 mg DAILY PO 08/06/24 10:00 Furosemide 80 mg DAILY PO 08/06/24 10:00 UNV Exam Vital Signs Vital Signs Date Time Temp Pulse Resp B/P (MAP) Pulse Ox O2 Delivery O2 Flow Rate FiO2 08/05/24 22:06 92 08/05/24 20:27 99.1 14 146/111 (123) 97 Exam General examination- awake, alert, oriented, anxious HEENT- PEERLA, no acute nasal discharge Cardiovascular- S1-S2 audible, rate and rhythm regular, murmur+ Respiratory- CTAB, no wheeze or rhonchi Gastrointestinal-nontender, bowel sound+. Nondistended Musculoskeletal-no acute joint swelling or tenderness or redness# Lower extremity- no leg edema Neurological- cranial nerves intact, no acute dysarthria or dysphagia psychiatry-denies SI or HI Skin- no acute rash or purpura Labs/Xrays Labs Test 08/05/24 21:32 08/05/24 21:29 08/05/24 20:39 08/05/24 20:30 Range/Units Lactic Acid Level 1.7 0.4-2.0 mmol/L Troponin I High Sensitivity 3 L </=34 ng/L White Blood Count 11.7 H 4.4-10.8 10^3/uL Red Blood Count 4.97 4.0-5.20 10^6/uL Hemoglobin 11.8 L 12.2-16.2 g/dL Hematocrit 37.4 36.0-46.0 % Mean Corpuscular Volume 75.3 L 80.0-100.0 fL Mean Corpuscular Hemoglobin 23.7 L 28.0-32.0 pg Mean Corpuscular Hemoglobin Concent 31.5 L 32.0-36.0 g/dL Red Cell Distribution Width 18.2 H 11.8-14.3 % Platelet Count 308 140-450 10^3/uL Mean Platelet Volume 7.5 6.9-10.8 fL Neutrophils (%) (Auto) 85.2 H 37.0-80.0 % Lymphocytes (%) (Auto) 9.8 L 10.0-50.0 % Monocytes (%) (Auto) 4.2 0.0-12.0 % Eosinophils (%) (Auto) 0.4 0.0-7.0 % Basophils (%) (Auto) 0.4 0.0-2.0 % Neutrophils # (Auto) 10.0 H 1.6-8.6 10 ^3/uL Lymphocytes # (Auto) 1.1 0.4-5.4 10 ^3/uL Monocytes # (Auto) 0.5 0-1.3 10 ^3/uL Eosinophils # (Auto) 0 0-0.8 10 ^3/uL Basophils # (Auto) 0 0-0.2 10 ^3/uL Nucleated Red Blood Cells 0.0 % Prothrombin Time 10.3 9.3-11.8 sec Prothrombin Time INR 0.97 0.9-1.15 Activated Partial Thromboplast Time 24.5 24.5-34.5 SEC Sodium Level 135 L 136-145 mmol/L Potassium Level 2.9 L 3.5-5.1 mmol/L Chloride Level 96 L 98-107 mmol/L Carbon Dioxide Level 29 20-31 mmol/L Anion Gap 10 5-15 Blood Urea Nitrogen 11 9-23 mg/dL Creatinine 1.04 H 0.550-1.02 mg/dL Glomerular Filtration Rate Calc 67 >90 mL/min BUN/Creatinine Ratio 10.6 10.0-20.0 Serum Glucose 117 H 74-106 mg/dL Calcium Level 10.2 8.7-10.4 mg/dL Magnesium Level 2.2 1.6-2.6 mg/dL Total Bilirubin 0.3 0.2-1.0 mg/dL Aspartate Amino Transferase (AST) 21 13-40 U/L Alanine Aminotransferase (ALT) 30 7-40 U/L Alkaline Phosphatase 173 H 46-116 U/L B-Type Natriuretic Peptide 26.89 0-100 pg/mL Total Protein 7.8 5.7-8.2 g/dL Albumin 5.2 H 3.2-4.8 g/dL Lipase 26 12-53 U/L Urine Color Light-yellow Yellow Urine Clarity Clear Clear Urine pH 6.0 5.0-9.0 Urine Specific [place] 1.010 1.001-1.035 Urine Protein Negative Negative Urine Ketones Negative Negative Urine Blood Negative Negative /uL Urine Nitrite Negative Negative Urine Bilirubin Negative Negative Urine Urobilinogen Normal Negative mg/dL Urine Leukocyte Esterase Negative Negative /uL Urine RBC <1 0 - 4 /hpf Urine WBC 5 0 - 5 /hpf Urine Squamous Epithelial Cells Few <5 /hpf Urine Bacteria None seen None Seen /hpf Urine Glucose Normal Normal mg/dL Assessment/Plan Assessment/Plan # acute chest pain likely due to ACS/musculoskeletal -troponin I negative -EKG with a sinus rhythm, no acute ST elevation or T-wave changes -pending echo 2D -continue pain medication as prescribed -continue atorvastatin 20 mg q.h.s. -continue Plavix 75 mg p.o. daily -continue nitroglycerin p.r.n. as prescribed -continue morphine p.r.n. as prescribed -ordered consult cardiology # intractable nausea and vomiting likely due to gastritis -continue Zofran p.r.n. as prescribed -promethazine Q 6 H p.r.n. as prescribed # intractable nausea and vomiting likely due to gastritis -continue Zofran p.r.n. as prescribed -continue promethazine p.r.n. as prescribed # CHF -Lasix 40 mg q.d. -metoprolol 25 mg p.o. b.i.d. -ordered consult cardiology -pending echo 2D # history of pacemaker implant due to bradycardia -follow up with Cardiology as outpatient # history of lupus -follow up outpatient Goals of care/advance care planning; FULL CODE; discussed with the patient >15 minutes PUD prophylaxis: DVT prophylaxis: Plan discussed with Dr. Mallory, nursing staff, patient Total time spent on patient evaluation, chart review, assessment and plan, discussion discussion >30 minutes Plan discussed with: Patient My Orders Orders - TALI MURDOCK Procedure Category Date Status Time Admit ADMIT 08/05/24 Transmitted 22:56 Sodium Chloride Lock PHA 08/06/24 In Process (Saline Lock Ns) 06:00 Docusate Sodium PHA 08/05/24 In Process Capsule (Colace 23:00 Echo 2d Mode Cardiac US 08/05/24 Logged DOP 22:56 Morphine Sulfate PHA 08/05/24 In Process Injection 23:00 Nitroglycerin PHA 08/05/24 In Process Sublingual (Ntrostat 23:00 Morphine Sulfate PHA 08/05/24 In Process Injection 23:00 Oxygen By Nasal RT 08/05/24 Transmitted Cannula 22:56 Stat Ekg For Chest BUTCH 08/05/24 In Process Pain 22:56 Notify Of Changes BUTCH 08/05/24 In Process From Base 22:56 Community Case Manager For BUTCH 08/05/24 In Process 24 Hours 22:56 Emergency Dysrhythmia BUTCH 08/05/24 In Process Protocol 22:56 Rhythm Strips Once BUTCH 08/05/24 In Process Every Shift 22:56 TALI MURDOCK Aug 05, 2024 23:47 DEMETRIUS GARCIA NP Aug 06, 2024 11:59
[2024-08-06] VITALS (7 sets, daily range): BP systolic 101–132; BP diastolic 64–90; PULSE 16–93; RESP 12–18; TEMP 97.7–98.6; O2SAT 94–100
[2024-08-06] MEDS ORDERED: PROMETHAZINE HCL 6.25 MG/5 ML ORAL SYRUP PO PRN (00:15)
[2024-08-06] MEDS ORDERED: CLOPIDOGREL BISULFATE 75 MG TAB PO ONE (00:15)
[2024-08-06] MEDS: POTASSIUM CHL 20 Meq TABLET PO ONE (00:46)
[2024-08-06] MEDS: ONDANSETRON HCL 4 MG/2 ML VIAL IV ONE (00:47)
[2024-08-06] MEDS: FAMOTIDINE (10MG/ML) 2ML VL IV ONE (00:47)
[2024-08-06] MEDS: diphenhdrAMINE HCL 50 MG/1 ML VL IV ONE (01:01)
[2024-08-06] MEDS: NITROGLYCERIN 0.4 MG SL TAB SL ONE (01:21)
[2024-08-06] MEDS: MORPHINE SULFATE INJ 2 MG/ml SYRG IV PRN ×2 (01:46→06:08)
[2024-08-06] MEDS ORDERED: SCOP1DIS9 TD (05:50)
[2024-08-06] MEDS ORDERED: MECL-90 PO (05:53)
[2024-08-06] MEDS ORDERED: PRED20TA2 PO (05:53)
[2024-08-06] MEDS: LEVOTHYROXINE SODIUM 100 MCG TAB PO SCH (06:07)
[2024-08-06] MEDS: ONDANSETRON HCL 4 MG/2 ML VIAL IV PRN (06:07)
[2024-08-06] MEDS: SODIUM CHLOR 0.9% PF (SALINE LOCK) 10ML VIAL/SYR IV SCH (06:16)
--- NOTE | 2024-08-06 06:20 | ECG ---
[facility] Test Date: 2024-08-05 Test Time: 22:06:39 Pat Name: KAMALA CARLSON Department: ED Room: [address] [place] [address] 8 Gender: F Office Agent: MELANIE : 1975 Requested By: IVELISSE ACEVES Order Number: [id number] Reading MD: Sukhdev Singletary Measurements Intervals [place] Rate: 92 P: 79 TN: 132 QRS: 39 QRSD: 97 T: 257 QT: 407 QTc: 504 Interpretive Statements Sinus arrhythmia Multiple ventricular premature complexes Borderline repolarization abnormality Borderline prolonged QT interval Baseline wander in lead(s) V4 Electronically Signed On 08-06-2024 8:28:23 PST by Sukhdev Singletary Please click the below link to view image of tracing.
[2024-08-06 08:30] LABS: Basophils # (auto) 0.1 10 ^3/uL (0-0.2); Basophils % (auto) 1.5 % (0.0-2.0); Eosinophils # (auto) 0.2 10 ^3/uL (0-0.8); Hematocrit 33.7 % (36.0-46.0); Hemoglobin 10.6 g/dL (12.2-16.2); Lymphocytes # (auto) 1.4 10 ^3/uL (0.4-5.4); Lymphocytes % (auto) 29.8 % (10.0-50.0); Mean Corpuscular Hemoglobin 23.7 pg (28.0-32.0); Mean Corpuscular Hgb Conc. 31.5 g/dL (32.0-36.0); Mean Corpuscular Volume 75.4 fL (80.0-100.0); Monocytes # (auto) 0.7 10 ^3/uL (0-1.3); Neutrophils # (auto) 2.4 10 ^3/uL (1.6-8.6); Neutrophils % (auto) 49.7 % (37.0-80.0); Platelet Count (auto) 240 10^3/uL (140-450); Red Blood Cells 4.47 10^6/uL (4.0-5.20); Red Cell Distribution Width 17.9 % (11.8-14.3); White Blood Cell 4.9 10^3/uL (4.4-10.8)
[2024-08-06 08:48] LABS: Alanine Aminotransferase 23 U/L (7-40); Albumin 4.3 g/dL (3.2-4.8); Alkaline Phosphatase 137 U/L (46-116); Anion Gap 6 (5-15); Aspartate Aminotransferase 16 U/L (13-40); BUN/Creatinine Ratio 8.8 (10.0-20.0); Blood Urea Nitrogen 9 mg/dL (9-23); Carbon Dioxide 32 mmol/L (20-31); Chloride 100 mmol/L (98-107); Glucose 112 mg/dL (74-106); Potassium 3.6 mmol/L (3.5-5.1); Sodium 138 mmol/L (136-145)
[2024-08-06 08:49] LABS: Bilirubin, Total 0.4 mg/dL (0.2-1.0); Total Protein 6.3 g/dL (5.7-8.2)
[2024-08-06 09:28] LABS: Hepatitis B Surface Antigen Negative (Negative)
[2024-08-06 09:49] LABS: Hepatitis C Antibody Negative (Negative)
[2024-08-06] MEDS ORDERED: FUROSEMIDE 40 MG TAB PO SCH (10:00)
[2024-08-06] MEDS ORDERED: FAMOTIDINE (10MG/ML) 2ML VL IV SCH (10:00)
--- NOTE | 2024-08-06 10:23 | DVHINCON2 ---
Date of service: Aug 06, 2024 History of Present Illness HPI Patient is a 49-year-old female who presented with chest pain/nausea/vomiting/palpitation. She does use marijuana for low back pain. She was recently in another facility for comparable Radiology. Cardiology is involved for cardiac aspects of care. Her outpatient pin sticker is in another [facility]. She does have a pacemaker (Biotronik) which she says it was interrogated around 6-7 months ago. Home Meds Active Scripts Nitrofurantoin (Nitrofurantoin) 100 Mg Cap, 1 CAP PO BID, #10 CAP Prov:ALLIE MENDEZ MD 08/19/17 Reported Medications Prednisone (Prednisone) 20 Mg Tab, 20 MG PO DAILY for lupus, MG 08/06/24 Meclizine Hcl (Meclizine Hcl) 25 Mg Tab, 25 MG PO BIDP PRN for DIZZINESS for 30 Days, MG 08/06/24 Scopolamine (Scopolamine) 1 Mg/3 Days Dis, 1 MG TD, DIS 08/06/24 Fluoxetine Hcl (Pmdd) (Fluoxetine) 10 Mg Cap, 1 CAP PO DAILY, #30 CAP 2 Refills 08/18/17 Zolpidem Tartrate (Ambien) 10 Mg Tab, 1 TAB PO QPM, #30 TAB 5 Refills 08/18/17 Levothyroxine Sodium (Levothyroxine Sodium) 100 Mcg Tab, 100 MCG PO QAM for 30 Days, MCG 08/18/17 Metoprolol Tartrate (Metoprolol Tartrate) 25 Mg Tab, 25 MG PO BID for 30 Days, MG 08/18/17 Atorvastatin Calcium (Lipitor) 20 Mg Tab, 1 TAB PO DAILY, #90 TAB 1 Refill 08/18/17 Furosemide (Lasix) 80 Mg Tab, 80 MG PO DAILY, TAB 08/18/17 Promethazine Hcl (Promethegan) 12.5 Mg Sup 07/18/12 Hydrocodone-Acetaminophen (Vicodin) 1 Tab Tab, 1 MG PO PRN for MILD PAIN OR TEMP>100.4 07/18/12 Past Medical History Others Past medical history reportedly includes questionable CHF, 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 Outside record review revealed nuclear stress test of 18 March 2022 in [facility] revealed no ischemia. Echocardiogram of February 2023 in [facility] revealed ejection fraction 55-60% with normal right ventricular systolic pressure. Left heart catheterization of 2012 had revealed normal coronaries Patient Family History: Cardiovascular disease G8 MOTHER FH: kidney failure G8 MOTHER FH: lupus Family history: Cardiovascular disease G8 MOTHER G8 FATHER Family history: Diabetes mellitus G8 MOTHER G8 FATHER Family history: Hypertension Smoker: Quit Alocohol: None Drugs: Marijuana Review of Systems Constitutional: No symptom reported Ears, Nose, & Throat: No symptom reported Cardiovascular: Chest Pain, Palpitations Gastrointestinal: Nausea, Abdominal Pain All Other Systems 14 point review of system was performed. Relevant findings as per above and as per HPI. Otherwise negative. H&P Exam Vital Signs Vital Signs Date Time Temp Pulse Resp B/P (MAP) Pulse Ox O2 Delivery O2 Flow Rate FiO2 08/06/24 06:38 76 18 108/73 08/06/24 05:00 98.6 98 98.6 08/06/24 04:40 Nasal Cannula* 2 28 General Appeara: Well developed, Well nourished Head Exam: Normal inspection Neck Exam: Normal inspection Eye Exam: bilateral eye PERRL Nasal Exam: Normal inspection Mouth: Normal Inspection Pulmonary/Respiratory: Lungs clear Cardiovascular/Chest: Normal inspection, Regular rate Peripheral Pulses: 2+ carotid (R), 2+ carotid (L), 2+ femoral (R), 2+ femoral (L), 2+ dorsalis pedis (R), 2+ dorsalis pedis (L), 2+ Radial (R), 2+ Radial (L) Abdominal Exam: Normal bowel sounds, Soft, No hepatospenomegaly Neuro/Mental St: Alert, Oriented Appearance: Appropriate appearance Eye contact/ Speech: Cooperative Labs/Xrays Labs Test 08/06/24 08:15 08/05/24 21:32 08/05/24 21:29 08/05/24 20:39 Range/Units White Blood Count 4.9 # 4.4-10.8 10^3/uL Red Blood Count 4.47 4.0-5.20 10^6/uL Hemoglobin 10.6 L 12.2-16.2 g/dL Hematocrit 33.7 L 36.0-46.0 % Mean Corpuscular Volume 75.4 L 80.0-100.0 fL Mean Corpuscular Hemoglobin 23.7 L 28.0-32.0 pg Mean Corpuscular Hemoglobin Concent 31.5 L 32.0-36.0 g/dL Red Cell Distribution Width 17.9 H 11.8-14.3 % Platelet Count 240 140-450 10^3/uL Mean Platelet Volume 7.2 6.9-10.8 fL Neutrophils (%) (Auto) 49.7 37.0-80.0 % Lymphocytes (%) (Auto) 29.8 10.0-50.0 % Monocytes (%) (Auto) 15.0 H 0.0-12.0 % Eosinophils (%) (Auto) 4.0 0.0-7.0 % Basophils (%) (Auto) 1.5 0.0-2.0 % Neutrophils # (Auto) 2.4 1.6-8.6 10 ^3/uL Lymphocytes # (Auto) 1.4 0.4-5.4 10 ^3/uL Monocytes # (Auto) 0.7 0-1.3 10 ^3/uL Eosinophils # (Auto) 0.2 0-0.8 10 ^3/uL Basophils # (Auto) 0.1 0-0.2 10 ^3/uL Nucleated Red Blood Cells 0.0 % Sodium Level 138 136-145 mmol/L Potassium Level 3.6 3.5-5.1 mmol/L Chloride Level 100 98-107 mmol/L Carbon Dioxide Level 32 H 20-31 mmol/L Anion Gap 6 5-15 Blood Urea Nitrogen 9 9-23 mg/dL Creatinine 1.02 0.550-1.02 mg/dL Glomerular Filtration Rate Calc 68 >90 mL/min BUN/Creatinine Ratio 8.8 L 10.0-20.0 Serum Glucose 112 H 74-106 mg/dL Calcium Level 10.0 8.7-10.4 mg/dL Total Bilirubin 0.4 0.2-1.0 mg/dL Aspartate Amino Transferase (AST) 16 13-40 U/L Alanine Aminotransferase (ALT) 23 7-40 U/L Alkaline Phosphatase 137 H 46-116 U/L Total Protein 6.3 5.7-8.2 g/dL Albumin 4.3 3.2-4.8 g/dL Lactic Acid Level 1.7 0.4-2.0 mmol/L Troponin I High Sensitivity 3 L </=34 ng/L Prothrombin Time 10.3 9.3-11.8 sec Prothrombin Time INR 0.97 0.9-1.15 Activated Partial Thromboplast Time 24.5 24.5-34.5 SEC Magnesium Level 2.2 1.6-2.6 mg/dL B-Type Natriuretic Peptide 26.89 0-100 pg/mL Lipase 26 12-53 U/L Test 08/05/24 20:30 Range/Units Urine Color Light-yellow Yellow Urine Clarity Clear Clear Urine pH 6.0 5.0-9.0 Urine Specific [place] 1.010 1.001-1.035 Urine Protein Negative Negative Urine Ketones Negative Negative Urine Blood Negative Negative /uL Urine Nitrite Negative Negative Urine Bilirubin Negative Negative Urine Urobilinogen Normal Negative mg/dL Urine Leukocyte Esterase Negative Negative /uL Urine RBC <1 0 - 4 /hpf Urine WBC 5 0 - 5 /hpf Urine Squamous Epithelial Cells Few <5 /hpf Urine Bacteria None seen None Seen /hpf Urine Glucose Normal Normal mg/dL Urine Opiates Screen Pos NEGATIVE Urine Fentanyl Screen Neg NEGATIVE Urine Barbiturates Screen Neg NEGATIVE Urine Phencyclidine Screen Neg NEGATIVE Urine Amphetamines Screen Neg NEGATIVE Urine Benzodiazepines Screen Neg NEGATIVE Urine Cocaine Screen Neg NEGATIVE Urine Cannabinoids Screen Pos NEGATIVE Assessment/Plan Plan Patient is a 49-year-old female who presented with chest pain/nausea/vomiting/palpitation. She does use marijuana for low back pain. She was recently in another facility for comparable Radiology. Cardiology is involved for cardiac aspects of care. Her outpatient pin sticker is in another city. She does have a pacemaker (Biotronik) which she says it was interrogated around 6-7 months ago. Not in acute distress. Young healthy looking female. No JVD. Mucosa is pink and wet. No carotid bruit. Cardiac: Regular, no thrill/gallop. Lungs are clear to auscultation. Abdomen is soft. There is no gross mass/hepatomegaly. Extremities do not reveal edema. Dorsalis pedis is 2+ bilateral Past medical history reportedly includes questionable CHF, 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 Outside record review revealed nuclear stress test of 18 March 2022 in [facility] revealed no ischemia. Echocardiogram of February 2023 in [facility] revealed ejection fraction 55-60% with normal right ventricular systolic pressure. Left heart catheterization of 2012 had revealed normal coronaries White blood cell: 11.7 - 4.9 Hemoglobin: 11.8 - 10.8 BNP: 26.89 (within normal limits) Troponin (high sensitive): 4 - 3 Creatinine: 1.04 - 1.02 Potassium: 2.9 - 3.6 Magnesium: 2.2 Urine toxicology was positive for opiates/cannabinoids Chest x-ray revealed: IMPRESSION: 1. No acute cardiopulmonary disease. EKG reveals sinus rhythm with no specific ST-T changes Patient is a 49-year-old healthy-looking female presented with atypical chest discomfort/nausea/palpitation. High sensitive troponin has been negative. BNP is normal. Presentation is less likely to be acute coronary syndrome. Has had negative nuclear stress test around 2 years ago. Does have a pacemaker which was interrogated around 67 months ago. He does have history of noncompliance. Does have several comorbidities as above. Does use marijuana occasionally. There has been some question about atrial fibrillation in outside records ([facility]). Patient has not been on anticoagulation. Patient herself mentions that she bleeds easily and she has not tolerated anticoagulation before. Atypical chest pain Sick sinus syndrome and history of pacemaker implantation Very questionable history of CHF Old history of CVA (no gross residual weakness) RA Lupus Old history of gastric bypass Cardiac suggestion for management: Manage on telemetry Follow-up electrolytes and kidney function tests and correct abnormalities. Keep potassium above 4 and magnesium above 2 Request for echocardiogram Request for interrogation of pacemaker (Biotronik) Further evaluation and management depends on the above and clinical course Thank you for consultation A total of 75 minutes was spent reviewing the patient record, examining the patient, making a diagnostic and therapeutic plan, discussing this plan with medical personnel, following up on diagnostic studies and following the patient for clinical stability excluding any and all procedures. At least 50% of this time was spent in direct, [id number] contact. Thank you for allowing me to participate in this patient's care. Further recommendations will depend on patient's clinical course. Please do not hesitate to contact me if you have any questions or concerns. This medical document was created using electronic medical record system with MModal computerized dictation system. Although this document has been carefully reviewed, there may still be some phonetic and typographical errors. These areas are purely typographical due to the imperfection of the software programs, and do not reflect any compromise in the patient's medical care. Plan discussed with: Patient, Other (Nurse) GEOVANI RG MD Aug 06, 2024 10:23
[2024-08-06] MEDS: ATORVASTATIN 20 MG TAB PO SCH (11:11)
[2024-08-06] MEDS: METOPROLOL TARTRATE 25 MG TAB PO SCH (11:11)
[2024-08-06] MEDS: ENOXAPARIN SOD 40 MG/0.4 ML SYRINGE SC SCH (11:12)
--- NOTE | 2024-08-06 12:01 | DVHPN2 ---
Progress Note - Dictate vital signs Vital Sign Date Time Temp Pulse Resp B/P (MAP) Pulse Ox O2 Delivery O2 Flow Rate FiO2 08/06/24 11:11 78 132/64 08/06/24 06:38 18 08/06/24 05:00 98.6 98 98.6 08/06/24 04:40 Nasal Cannula* 2 28 medications Current Medications Medications Dose Ordered Sig/Keyur Route Start Time Stop Time Status Last Admin Dose Admin Sodium Chloride 10 ml Q8HR IV 08/06/24 06:00 08/06/24 06:16 Docusate Sodium 100 mg BIDPRN PRN PO 08/05/24 23:00 Morphine Sulfate 2 mg Q4HPRN PRN IV 08/05/24 23:00 08/06/24 06:08 Nitroglycerin 0.4 mg Q5MINP PRN SL 08/05/24 23:00 Morphine Sulfate 2 mg Q30M PRN IV 08/05/24 23:00 Acetaminophen/ Hydrocodone Bitart 1 tab Q4HP PRN PO 08/05/24 23:15 Temazepam 15 mg QHSP PRN PO 08/05/24 23:15 Ondansetron HCl 4 mg Q4HP PRN IV 08/05/24 23:15 08/06/24 06:07 Acetaminophen 650 mg Q6HP PRN PO 08/05/24 23:15 Morphine Sulfate 2 mg Q4HPRN PRN IV 08/05/24 23:15 08/06/24 01:46 Enoxaparin Sodium 40 mg DAILY SC 08/06/24 10:00 08/06/24 11:12 Nitroglycerin 0.4 mg Q5MINP PRN SL 08/05/24 23:15 Morphine Sulfate 2 mg Q30M PRN IV 08/05/24 23:15 Atorvastatin Calcium 20 mg DAILY PO 08/06/24 10:00 08/06/24 11:11 Levothyroxine Sodium 100 mcg QAM PO 08/06/24 07:00 08/06/24 06:07 Metoprolol Tartrate 25 mg BID PO 08/06/24 10:00 08/06/24 11:11 Fluoxetine HCl 10 mg DAILY PO 08/06/24 10:00 Famotidine 20 mg Q12HR IV 08/06/24 10:00 Hold Potassium Bicarbonate 25 meq DAILY PO 08/06/24 10:00 laboratory and microbiology Laboratory Tests 08/06/24 08:15 Test 08/06/24 08:15 Range/Units Serum Glucose 112 H 74-106 mg/dL DEMETRIUS GARCIA RETIREMENT BENEFITS SPECIALIST Aug 06, 2024 12:01
--- NOTE | 2024-08-06 12:01 | DVHHP2 ---
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 08/06/24 Reported Medications Prednisone (Prednisone) 20 Mg Tab, 20 MG PO DAILY for lupus, MG 08/06/24 Meclizine Hcl (Meclizine Hcl) 25 Mg Tab, 25 MG PO BIDP PRN for DIZZINESS for 30 Days, MG 08/06/24 Scopolamine (Scopolamine) 1 Mg/3 Days Dis, 1 MG TD, DIS 08/06/24 Fluoxetine Hcl (Pmdd) (Fluoxetine) 10 Mg Cap, 1 CAP PO DAILY, #30 CAP 2 Refills 08/18/17 Zolpidem Tartrate (Ambien) 10 Mg Tab, 1 TAB PO QPM, #30 TAB 5 Refills 08/18/17 Levothyroxine Sodium (Levothyroxine Sodium) 100 Mcg Tab, 100 MCG PO QAM for 30 Days, MCG 08/18/17 Metoprolol Tartrate (Metoprolol Tartrate) 25 Mg Tab, 25 MG PO BID for 30 Days, MG 08/18/17 Atorvastatin Calcium (Lipitor) 20 Mg Tab, 1 TAB PO DAILY, #90 TAB 1 Refill 08/18/17 Furosemide (Lasix) 80 Mg Tab, 80 MG PO DAILY, TAB 08/18/17 Promethazine Hcl (Promethegan) 12.5 Mg Sup 07/18/12 Hydrocodone-Acetaminophen (Vicodin) 1 Tab Tab, 1 MG PO PRN for MILD PAIN OR TEMP>100.4 07/18/12 Discontinued Scripts Nitrofurantoin (Nitrofurantoin) 100 Mg Cap, 1 CAP PO BID, #10 CAP Prov:ALLIE MENDEZ MD 08/19/17 Past Medical History Others Past medical history reportedly includes questionable CHF, 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 Outside record review revealed nuclear stress test of 18 March 2022 in [facility] revealed no ischemia. Echocardiogram of February 2023 in [facility] revealed ejection fraction 55-60% with normal right ventricular systolic pressure. Left heart catheterization of 2012 had revealed normal coronaries Patient Family History: Cardiovascular disease G8 MOTHER FH: kidney failure G8 MOTHER FH: lupus Family history: Cardiovascular disease G8 MOTHER G8 FATHER Family history: Diabetes mellitus G8 MOTHER G8 FATHER Family history: Hypertension H&P Exam Vital Signs Vital Signs Date Time Temp Pulse Resp B/P (MAP) Pulse Ox O2 Delivery O2 Flow Rate FiO2 08/06/24 11:11 78 132/64 08/06/24 06:38 18 08/06/24 05:00 98.6 98 98.6 08/06/24 04:40 Nasal Cannula* 2 28 Labs/Xrays Labs Test 08/06/24 08:15 08/05/24 21:32 08/05/24 21:29 08/05/24 20:39 Range/Units White Blood Count 4.9 # 4.4-10.8 10^3/uL Red Blood Count 4.47 4.0-5.20 10^6/uL Hemoglobin 10.6 L 12.2-16.2 g/dL Hematocrit 33.7 L 36.0-46.0 % Mean Corpuscular Volume 75.4 L 80.0-100.0 fL Mean Corpuscular Hemoglobin 23.7 L 28.0-32.0 pg Mean Corpuscular Hemoglobin Concent 31.5 L 32.0-36.0 g/dL Red Cell Distribution Width 17.9 H 11.8-14.3 % Platelet Count 240 140-450 10^3/uL Mean Platelet Volume 7.2 6.9-10.8 fL Neutrophils (%) (Auto) 49.7 37.0-80.0 % Lymphocytes (%) (Auto) 29.8 10.0-50.0 % Monocytes (%) (Auto) 15.0 H 0.0-12.0 % Eosinophils (%) (Auto) 4.0 0.0-7.0 % Basophils (%) (Auto) 1.5 0.0-2.0 % Neutrophils # (Auto) 2.4 1.6-8.6 10 ^3/uL Lymphocytes # (Auto) 1.4 0.4-5.4 10 ^3/uL Monocytes # (Auto) 0.7 0-1.3 10 ^3/uL Eosinophils # (Auto) 0.2 0-0.8 10 ^3/uL Basophils # (Auto) 0.1 0-0.2 10 ^3/uL Nucleated Red Blood Cells 0.0 % Sodium Level 138 136-145 mmol/L Potassium Level 3.6 3.5-5.1 mmol/L Chloride Level 100 98-107 mmol/L Carbon Dioxide Level 32 H 20-31 mmol/L Anion Gap 6 5-15 Blood Urea Nitrogen 9 9-23 mg/dL Creatinine 1.02 0.550-1.02 mg/dL Glomerular Filtration Rate Calc 68 >90 mL/min BUN/Creatinine Ratio 8.8 L 10.0-20.0 Serum Glucose 112 H 74-106 mg/dL Calcium Level 10.0 8.7-10.4 mg/dL Total Bilirubin 0.4 0.2-1.0 mg/dL Aspartate Amino Transferase (AST) 16 13-40 U/L Alanine Aminotransferase (ALT) 23 7-40 U/L Alkaline Phosphatase 137 H 46-116 U/L Total Protein 6.3 5.7-8.2 g/dL Albumin 4.3 3.2-4.8 g/dL Hepatitis B Surface Antigen Negative Negative Hepatitis C Antibody Negative Negative Lactic Acid Level 1.7 0.4-2.0 mmol/L Troponin I High Sensitivity 3 L </=34 ng/L Prothrombin Time 10.3 9.3-11.8 sec Prothrombin Time INR 0.97 0.9-1.15 Activated Partial Thromboplast Time 24.5 24.5-34.5 SEC Magnesium Level 2.2 1.6-2.6 mg/dL B-Type Natriuretic Peptide 26.89 0-100 pg/mL Lipase 26 12-53 U/L Test 08/05/24 20:30 Range/Units Urine Color Light-yellow Yellow Urine Clarity Clear Clear Urine pH 6.0 5.0-9.0 Urine Specific [place] 1.010 1.001-1.035 Urine Protein Negative Negative Urine Ketones Negative Negative Urine Blood Negative Negative /uL Urine Nitrite Negative Negative Urine Bilirubin Negative Negative Urine Urobilinogen Normal Negative mg/dL Urine Leukocyte Esterase Negative Negative /uL Urine RBC <1 0 - 4 /hpf Urine WBC 5 0 - 5 /hpf Urine Squamous Epithelial Cells Few <5 /hpf Urine Bacteria None seen None Seen /hpf Urine Glucose Normal Normal mg/dL Urine Opiates Screen Pos NEGATIVE Urine Fentanyl Screen Neg NEGATIVE Urine Barbiturates Screen Neg NEGATIVE Urine Phencyclidine Screen Neg NEGATIVE Urine Amphetamines Screen Neg NEGATIVE Urine Benzodiazepines Screen Neg NEGATIVE Urine Cocaine Screen Neg NEGATIVE Urine Cannabinoids Screen Pos NEGATIVE DEMETRIUS GARCIA NP Aug 06, 2024 12:01
[2024-08-06] MEDS: FLUoxetine HCL 10 MG CAP PO SCH (12:22)
[2024-08-06] MEDS: POTASSIUM EFFERVESENT TAB 25 MEQ PO SCH (12:22)
--- NOTE | 2024-08-06 13:50 | DVHDS2 ---
Discharge Summary Date of Admission Aug 05, 2024 at 22:57 Date of Discharge: Aug 06, 2024 Labs/Diagnostic Data: Laboratory Results Test 08/06/24 08:15 08/05/24 21:32 08/05/24 21:29 08/05/24 20:39 White Blood Count 4.9 10^3/uL (4.4-10.8) Red Blood Count 4.47 10^6/uL (4.0-5.20) Hemoglobin 10.6 g/dL (12.2-16.2) Hematocrit 33.7 % (36.0-46.0) Mean Corpuscular Volume 75.4 fL (80.0-100.0) Mean Corpuscular Hemoglobin 23.7 pg (28.0-32.0) Mean Corpuscular Hemoglobin Concent 31.5 g/dL (32.0-36.0) Red Cell Distribution Width 17.9 % (11.8-14.3) Platelet Count 240 10^3/uL (140-450) Mean Platelet Volume 7.2 fL (6.9-10.8) Neutrophils (%) (Auto) 49.7 % (37.0-80.0) Lymphocytes (%) (Auto) 29.8 % (10.0-50.0) Monocytes (%) (Auto) 15.0 % (0.0-12.0) Eosinophils (%) (Auto) 4.0 % (0.0-7.0) Basophils (%) (Auto) 1.5 % (0.0-2.0) Neutrophils # (Auto) 2.4 10 ^3/uL (1.6-8.6) Lymphocytes # (Auto) 1.4 10 ^3/uL (0.4-5.4) Monocytes # (Auto) 0.7 10 ^3/uL (0-1.3) Eosinophils # (Auto) 0.2 10 ^3/uL (0-0.8) Basophils # (Auto) 0.1 10 ^3/uL (0-0.2) Nucleated Red Blood Cells 0.0 % Sodium Level 138 mmol/L (136-145) Potassium Level 3.6 mmol/L (3.5-5.1) Chloride Level 100 mmol/L (98-107) Carbon Dioxide Level 32 mmol/L (20-31) Anion Gap 6 (5-15) Blood Urea Nitrogen 9 mg/dL (9-23) Creatinine 1.02 mg/dL (0.550-1.02) Glomerular Filtration Rate Calc 68 mL/min (>90) BUN/Creatinine Ratio 8.8 (10.0-20.0) Serum Glucose 112 mg/dL (74-106) Calcium Level 10.0 mg/dL (8.7-10.4) Total Bilirubin 0.4 mg/dL (0.2-1.0) Aspartate Amino Transferase (AST) 16 U/L (13-40) Alanine Aminotransferase (ALT) 23 U/L (7-40) Alkaline Phosphatase 137 U/L (46-116) Total Protein 6.3 g/dL (5.7-8.2) Albumin 4.3 g/dL (3.2-4.8) Hepatitis B Surface Antigen Negative (Negative) Hepatitis C Antibody Negative (Negative) Lactic Acid Level 1.7 mmol/L (0.4-2.0) Troponin I High Sensitivity 3 ng/L (</=34) Prothrombin Time 10.3 sec (9.3-11.8) Prothrombin Time INR 0.97 (0.9-1.15) Activated Partial Thromboplast Time 24.5 SEC (24.5-34.5) Magnesium Level 2.2 mg/dL (1.6-2.6) B-Type Natriuretic Peptide 26.89 pg/mL (0-100) Lipase 26 U/L (12-53) Test 08/05/24 20:30 Urine Color Light-yellow (Yellow) Urine Clarity Clear (Clear) Urine pH 6.0 (5.0-9.0) Urine Specific [place] 1.010 (1.001-1.035) Urine Protein Negative (Negative) Urine Ketones Negative (Negative) Urine Blood Negative /uL (Negative) Urine Nitrite Negative (Negative) Urine Bilirubin Negative (Negative) Urine Urobilinogen Normal mg/dL (Negative) Urine Leukocyte Esterase Negative /uL (Negative) Urine RBC <1 /hpf (0 - 4) Urine WBC 5 /hpf (0 - 5) Urine Squamous Epithelial Cells Few /hpf (<5) Urine Bacteria None seen /hpf (None Seen) Urine Glucose Normal mg/dL (Normal) Urine Opiates Screen Pos (NEGATIVE) Urine Fentanyl Screen Neg (NEGATIVE) Urine Barbiturates Screen Neg (NEGATIVE) Urine Phencyclidine Screen Neg (NEGATIVE) Urine Amphetamines Screen Neg (NEGATIVE) Urine Benzodiazepines Screen Neg (NEGATIVE) Urine Cocaine Screen Neg (NEGATIVE) Urine Cannabinoids Screen Pos (NEGATIVE) Other Laboratory Tests 08/06/24 08:15 Brief Hx & Hospital Course: Patient is a 49 Year Old female presenting to the ED with midsternal chest pain with radiating to the left neck. Patient reports vomiting, dizziness and diaphoresis. Patient also reports prior chest pain but never this excruciating. While in the emergency department the patient was evaluated by the provider, Labs, vital signs, and imagining monitored. Patient was admitted for multiple complaints, including chest pain, which appeared atypical. Acute coronary syndrome was ruled out. The patient has a history of anxiety and chronic back pain. Urinalysis was negative for blood, but the patient reported ongoing hematuria. She received one dose of IV antibiotics. The patient was cleared by cardiology for discharge and is scheduled for a pacemaker interrogation prior to discharge. Patient was advised to follow up with PCP, Dr. Vazquez, in 1 week. The patient received proper medical treatment and medications. Vital signs, Imaging and Laboratory Work was monitored. All consults recommendations were followed as provided. There were no complaints or new complaints upon discharge, all questions and concerns were answered. Patient was advised to return to the ER or call 911 if any headaches, dizziness, shortness of breath, chest pain, bleeding, fevers, or worsening of medical condition. Patient/Family was counseled about treatment plan, medications, possible side effects, patientverbalized understanding. All questions were answered to the best of my ability. The patient symptoms improved and they are okay to be DC. Condition at Discharge: Good Final Diagnosis/Problems List atypical chest pain pacemaker lupus Gastric bypass benign ess. HTN HLD Discharge Disposition: Home Discharge Statement: "Patient was advised to return to the ER or call 911 if any headaches, dizziness, shortness of breath, chest pain, abdominal pain, bleeding, fevers, or worsening of medical condition. Patient was counseled about treatment plan, medications, possible side effects, patientverbalized understanding. All questions were answered to the best of my ability. This discharge took greater then 30 minutes in planning, reviewing documentation, counseling the patient, and discussing with other team members." ASSESSMENT ASSESSMENT Assessment DMEETRIUS GARCIA NP Aug 06, 2024 13:50
[2024-08-06] MEDS ORDERED: FLUC150T38 PO (13:51)
[2024-08-06] MEDS ORDERED: CEPH500C PO (13:51)
[2024-08-06] MEDS: CARISOPRODOL 350 MG TAB PO ONE (14:55)
[2024-08-06] MEDS: cefTRIAXone 1GM/50ML D5W 50 ML IV ONE (14:55)
[2024-08-06] MEDS: MORPHINE SULFATE 4 MG/ML SYR/VIAL IV ONE (14:55)
[2024-08-06] MEDS: FLUCONAZOLE 100 MG TAB PO ONE (14:55)
--- NOTE | 2024-08-06 15:21 | DVHSR ---
APPROVED REPORT EXAM: Two-dimensional and M-mode echocardiogram with Doppler and color Doppler. Blood Pressure: 108/73 mmHg INDICATION Chest Pain RISK FACTORS Height: 63, Weight: 128 DIMENSIONS LVDd5.2 (3.8-5.7cm)LA (2D)4.1 (1.9-4.0cm)Aortic Root3.6 (2.0-3.7cm) LVDs3.3 (2.5-4.0cm)LA (MM) (1.9-4.0cm)Aortic Cusp Exc1.9 (1.5-2.0cm) EF (%) 65.0 (55-70%)Rt. Atrium4.3 (1.9-4.0cm)Asc. Aorta cm IVSd1.0 (0.7-1.1cm)RV (D) (1.8-2.4cm) PWd1.1 (0.7-1.1cm) Mitral Valve MitralMitral Stenosis E wave0.43m/sMV Mean GR.mmHg A wave0.51m/sMV Peak GR.mmHg E/A ratio0.82D MVAcm2 DECEL [id number] 1/2 [id number] IVRTmsDop MVA3.89cm2 Aortic Valve Aortic ValveAortic Stenosis V10.92m/Nafisa Mean GR.3mmHg V21.11m/Nafisa Peak GR.5mmHg LVOT Diameter2.1 (1.8-2.4cm)Doppler AVA2.87cm2 Pulmonic Valve V20.55m/s Other Information Technically limited study due to body habitus. Conclusion Left Ventricle: Mild concentric left ventricular hypertrophy was seen. LVEF was around 60%. There w as no gross wall motion abnormality. Right ventricle was normal-sized with normal systolic function. There was mild biatrial enlargement. Pacing wire in right-sided chambers was seen. Aortic valve: Aortic valve was not well visualized. There was trivial aortic insufficiency. There was no aortic stenosis. There was mild mitral valve prolapse with trace mitral regurgitation. There was no tricuspid regurgitation. Pulmonary valve revealed trivial pulmonary valve insufficiency. Right ventricular systolic pressure could not be estimated (poor TR jet). There was no pericardial e ffusion. IVC was normal-sized with normal respiratory variation.
--- NOTE | 2024-08-06 18:38 | ECG ---
[facility] Test Date: 2024-08-05 Test Time: 20:18:51 Pat Name: KAMALA CARLSON Department: ER Room: [address] [place] [address] 8 Gender: F Bilingual Medical Receptionist: MAHIN : 1975 Requested By: IVELISSE ACEVES Order Number: [id number] Reading MD: Sukhdev Singletary Measurements Intervals [place] Rate: 91 P: 74 MI: 134 QRS: 34 QRSD: 103 T: 191 QT: 337 QTc: 415 Interpretive Statements Sinus rhythm Ventricular premature complex Abnormal R-wave progression, early transition Nonspecific T abnormalities, diffuse leads Electronically Signed On 08-07-2024 14:13:35 PST by Sukhdev Singletary Please click the below link to view image of tracing.
--- NOTE | 2024-08-06 19:56 | DVHHP2 ---
Admitting Diagnosis: Atypical Chest Pain History of Present Illness Patient is a 49 Year Old female presenting to the ED with midsternal chest pain with radiating to the left neck. Patient reports vomiting, dizziness and diaphoresis. Patient also reports prior chest pain but never this excruciating. While in the emergency department the patient was evaluated by the provider, Labs, vital signs, and imagining monitored. Patient will be admitted for further evaluation and treatment. I discussed admission with the patient/family and is in agreement to treatment plan. Patient Family History: Cardiovascular disease G8 MOTHER FH: kidney failure G8 MOTHER FH: lupus Family history: Cardiovascular disease G8 MOTHER G8 FATHER Family history: Diabetes mellitus G8 MOTHER G8 FATHER Family history: Hypertension Allergies: Coded Allergies: Aspirin (Verified Allergy, Severe, 06/19/11) Metoclopramide (Verified Allergy, Intermediate, 06/18/11) Tramadol (Verified Allergy, Intermediate, 06/18/11) Famotidine (Verified Allergy, Unknown, 08/06/24) Home Meds Active Scripts Fluconazole (Diflucan) 150 Mg Tab, 1 TAB PO ONCE, #1 TAB 1 Refill Prov:DEMETRIUS GARCIA NP 08/06/24 Cephalexin Monohydrate (Cephalexin) 500 Mg Cap, 1 CAP PO QID for 5 Days, #20 CAP Prov:DEMETRIUS GARCIA [employer] 08/06/24 Reported Medications Prednisone (Prednisone) 20 Mg Tab, 20 MG PO DAILY for lupus, MG 08/06/24 Meclizine Hcl (Meclizine Hcl) 25 Mg Tab, 25 MG PO BIDP PRN for DIZZINESS for 30 Days, MG 08/06/24 Scopolamine (Scopolamine) 1 Mg/3 Days Dis, 1 MG TD, DIS 08/06/24 Fluoxetine Hcl (Pmdd) (Fluoxetine) 10 Mg Cap, 1 CAP PO DAILY, #30 CAP 2 Refills 08/18/17 Zolpidem Tartrate (Ambien) 10 Mg Tab, 1 TAB PO QPM, #30 TAB 5 Refills 08/18/17 Levothyroxine Sodium (Levothyroxine Sodium) 100 Mcg Tab, 100 MCG PO QAM for 30 Days, MCG 08/18/17 Metoprolol Tartrate (Metoprolol Tartrate) 25 Mg Tab, 25 MG PO BID for 30 Days, MG 08/18/17 Atorvastatin Calcium (Lipitor) 20 Mg Tab, 1 TAB PO DAILY, #90 TAB 1 Refill 08/18/17 Furosemide (Lasix) 80 Mg Tab, 80 MG PO DAILY, TAB 08/18/17 Promethazine Hcl (Promethegan) 12.5 Mg Sup 07/18/12 Hydrocodone-Acetaminophen (Vicodin) 1 Tab Tab, 1 MG PO PRN for MILD PAIN OR TEMP>100.4 07/18/12 Discontinued Scripts Nitrofurantoin (Nitrofurantoin) 100 Mg Cap, 1 CAP PO BID, #10 CAP Prov:ALLIE MENDEZ MD 08/19/17 Current Medications Current Medications Medications (Trade) Dose Ordered Sig/Keyur Route PRN Reason Start Time Stop Time Status Last Admin Sodium Chloride (Saline Lock Ns) 10 ml Q8HR IV 08/06/24 06:00 08/06/24 18:47 DC 08/06/24 14:55 Acetaminophen (Tylenol Tablet) 325 mg Q4HP PRN PO MILD PAIN (1-3 PAIN SCALE) 08/05/24 23:00 08/05/24 23:23 DC Docusate Sodium (Colace Capsule) 100 mg BIDPRN PRN PO FOR CONSTIPATION 08/05/24 23:00 08/06/24 18:47 DC Morphine Sulfate 2 mg Q4HPRN PRN IV SEVERE PAIN (7-10 PAIN SCALE) 08/05/24 23:00 08/06/24 12:46 DC 08/06/24 06:08 Nitroglycerin (Ntrostat Sublingual) 0.4 mg Q5MINP PRN SL FOR CHEST PAIN 08/05/24 23:00 08/06/24 12:46 DC Morphine Sulfate 2 mg Q30M PRN IV FOR CHEST PAIN 08/05/24 23:00 08/06/24 12:45 DC Acetaminophen/ Hydrocodone Bitart ([place] 5/325MG Tab) 1 tab Q4HP PRN PO MODERATE PAIN (4-6 PAIN SCALE) 08/05/24 23:15 08/06/24 18:47 DC Temazepam (Restoril) 15 mg QHSP PRN PO FOR INSOMNIA 08/05/24 23:15 08/06/24 18:47 DC Ondansetron HCl (Zofran) 4 mg Q4HP PRN IV NAUSEA / VOMITING 08/05/24 23:15 08/06/24 18:47 DC 08/06/24 15:10 Acetaminophen (Tylenol Tablet) 650 mg Q6HP PRN PO PAIN SCALE 1-3 OR TEMP>100.4 08/05/24 23:15 08/06/24 18:47 DC Morphine Sulfate 2 mg Q4HPRN PRN IV SEVERE PAIN (7-10 PAIN SCALE) 08/05/24 23:15 08/06/24 18:47 DC 08/06/24 01:46 Enoxaparin Sodium (Lovenox) 40 mg DAILY SC 08/06/24 10:00 08/06/24 18:47 DC 08/06/24 11:12 Nitroglycerin (Ntrostat Sublingual) 0.4 mg Q5MINP PRN SL FOR CHEST PAIN 08/05/24 23:15 08/06/24 18:47 DC Morphine Sulfate 2 mg Q30M PRN IV FOR CHEST PAIN 08/05/24 23:15 08/06/24 18:47 DC Atorvastatin Calcium (Lipitor) 20 mg DAILY PO 08/06/24 10:00 08/06/24 18:47 DC 08/06/24 11:11 Levothyroxine Sodium (Synthroid Tablet) 100 mcg QAM PO 08/06/24 07:00 08/06/24 18:47 DC 08/06/24 06:07 Metoprolol Tartrate (Lopressor Tablet) 25 mg BID PO 08/06/24 10:00 08/06/24 18:47 DC 08/06/24 11:11 Fluoxetine HCl (PROzac CAPSULE) 10 mg DAILY PO 08/06/24 10:00 08/06/24 18:47 DC 08/06/24 12:22 Furosemide (Lasix Tablet) 80 mg DAILY PO 08/06/24 10:00 08/06/24 00:23 DC Promethazine HCl (Phenergan Plain Syrup) 12.5 mg Q6HP PRN PO NAUSEA / VOMITING 08/06/24 00:15 08/06/24 00:23 DC Famotidine (Pepcid Injection) 20 mg Q12HR IV 08/06/24 10:00 08/06/24 12:02 DC Potassium Bicarbonate (Klor-Con/Ef) 25 meq DAILY PO 08/06/24 10:00 08/06/24 18:47 DC 08/06/24 12:22 Review of Systems Constitutional: denies chills, denies fever, denies malaise Eyes: denies eye pain, denies vision change ENT: denies ear pain, denies headache, denies nasal congestion, denies painful swallowing, denies voice change Cardiovascular: denies edema, denies orthopnea, denies palpitations, denies paroxysmal nocturnal dyspnea Respiratory: denies cough, denies shortness of breath Gastrointestinal: denies constipation, denies diarrhea, Genitourinary: denies dysuria, denies frequent urination, denies urethral discharge Musculoskeletal: denies back pain, denies joint pain, denies muscle pain Skin: denies bruising, denies itching, denies rash Neurological: denies focal weakness, denies headache, denies sensory changes Psychiatric: denies anxiety, denies depression Endocrine: denies polydipsia, denies polyuria Hematologic/Lymphatic: denies easy bleeding, denies easy bruising, denies enlarged lymph nodes Allergic/Immunologic: denies allergy, denies hives Vital Signs Vital Signs Date Time Temp Pulse Resp B/P (MAP) Pulse Ox O2 Delivery O2 Flow Rate FiO2 08/06/24 17:00 97.8 70 18 101/76 (84) 98 97.8 08/06/24 08:00 Nasal Cannula* 2 28 Physical Exam General Appearance: alert, no distress HEENT: EOMI, PERRLA, normal external inspect of ears, no icterus, no nasal drainage Neck: no carotid bruit, no jugular venous distention (JVD), no lymphadenopathy Chest: normal thorax Respiratory: clear to auscultation, normal air movement Cardiovascular: regular rate and rhythm, no diastolic murmur, no jugular venous distention (JVD), no rub, no systolic murmur Abdominal: soft, no hepatomegaly, no mass, no splenomegaly, no tenderness Genitourinary: grossly normal external Musculoskeletal: no joint tenderness, no swelling Extremities: normal pulses, no calf tenderness, no clubbing, no cyanosis, no edema Skin: no bruising, no jaundice, no rash Neurological: alert, No focal deficit Results Labs Test 08/06/24 08:15 08/05/24 21:32 08/05/24 21:29 08/05/24 20:39 Range/Units White Blood Count 4.9 # 4.4-10.8 10^3/uL Red Blood Count 4.47 4.0-5.20 10^6/uL Hemoglobin 10.6 L 12.2-16.2 g/dL Hematocrit 33.7 L 36.0-46.0 % Mean Corpuscular Volume 75.4 L 80.0-100.0 fL Mean Corpuscular Hemoglobin 23.7 L 28.0-32.0 pg Mean Corpuscular Hemoglobin Concent 31.5 L 32.0-36.0 g/dL Red Cell Distribution Width 17.9 H 11.8-14.3 % Platelet Count 240 140-450 10^3/uL Mean Platelet Volume 7.2 6.9-10.8 fL Neutrophils (%) (Auto) 49.7 37.0-80.0 % Lymphocytes (%) (Auto) 29.8 10.0-50.0 % Monocytes (%) (Auto) 15.0 H 0.0-12.0 % Eosinophils (%) (Auto) 4.0 0.0-7.0 % Basophils (%) (Auto) 1.5 0.0-2.0 % Neutrophils # (Auto) 2.4 1.6-8.6 10 ^3/uL Lymphocytes # (Auto) 1.4 0.4-5.4 10 ^3/uL Monocytes # (Auto) 0.7 0-1.3 10 ^3/uL Eosinophils # (Auto) 0.2 0-0.8 10 ^3/uL Basophils # (Auto) 0.1 0-0.2 10 ^3/uL Nucleated Red Blood Cells 0.0 % Sodium Level 138 136-145 mmol/L Potassium Level 3.6 3.5-5.1 mmol/L Chloride Level 100 98-107 mmol/L Carbon Dioxide Level 32 H 20-31 mmol/L Anion Gap 6 5-15 Blood Urea Nitrogen 9 9-23 mg/dL Creatinine 1.02 0.550-1.02 mg/dL Glomerular Filtration Rate Calc 68 >90 mL/min BUN/Creatinine Ratio 8.8 L 10.0-20.0 Serum Glucose 112 H 74-106 mg/dL Calcium Level 10.0 8.7-10.4 mg/dL Total Bilirubin 0.4 0.2-1.0 mg/dL Aspartate Amino Transferase (AST) 16 13-40 U/L Alanine Aminotransferase (ALT) 23 7-40 U/L Alkaline Phosphatase 137 H 46-116 U/L Total Protein 6.3 5.7-8.2 g/dL Albumin 4.3 3.2-4.8 g/dL Hepatitis B Surface Antigen Negative Negative Hepatitis C Antibody Negative Negative Lactic Acid Level 1.7 0.4-2.0 mmol/L Troponin I High Sensitivity 3 L </=34 ng/L Prothrombin Time 10.3 9.3-11.8 sec Prothrombin Time INR 0.97 0.9-1.15 Activated Partial Thromboplast Time 24.5 24.5-34.5 SEC Magnesium Level 2.2 1.6-2.6 mg/dL B-Type Natriuretic Peptide 26.89 0-100 pg/mL Lipase 26 12-53 U/L Test 08/05/24 20:30 Range/Units Urine Color Light-yellow Yellow Urine Clarity Clear Clear Urine pH 6.0 5.0-9.0 Urine Specific [place] 1.010 1.001-1.035 Urine Protein Negative Negative Urine Ketones Negative Negative Urine Blood Negative Negative /uL Urine Nitrite Negative Negative Urine Bilirubin Negative Negative Urine Urobilinogen Normal Negative mg/dL Urine Leukocyte Esterase Negative Negative /uL Urine RBC <1 0 - 4 /hpf Urine WBC 5 0 - 5 /hpf Urine Squamous Epithelial Cells Few <5 /hpf Urine Bacteria None seen None Seen /hpf Urine Glucose Normal Normal mg/dL Urine Opiates Screen Pos NEGATIVE Urine Fentanyl Screen Neg NEGATIVE Urine Barbiturates Screen Neg NEGATIVE Urine Phencyclidine Screen Neg NEGATIVE Urine Amphetamines Screen Neg NEGATIVE Urine Benzodiazepines Screen Neg NEGATIVE Urine Cocaine Screen Neg NEGATIVE Urine Cannabinoids Screen Pos NEGATIVE Admitting Diagnosis: 1. Atypical Chest Pain Cardiology Consult, monitoring 2. Lupus Medication, monitoring 3. Benign Essential Htn Medication, monitoring 4. HLD Echocardiogram, monitoring 5. Biotronik Pacemaker Cardiology Consult 6. Hx. Gastric Bypass Monitoring Plan discussed with: Patient, Other DEMETRIUS GARCIA NP Aug 06, 2024 19:56
== END 2024-08-06 18:14 | disposition home or self-care (01) | DRG 206 ==
LOC: ER 20:12 → TELE 22:57 → TELE-E-ADS 08-06 04:30
PROVIDERS: ADMIT Nurse Practitioner; ATTEND Nurse Practitioner
DX: M94.0 Chondrocostal junction syndrome [Tietze] (principal); I11.0 Hypertensive heart disease with heart failure; E87.6 Hypokalemia; I50.9 Heart failure, unspecified; E78.5 Hyperlipidemia, unspecified; G89.29 Other chronic pain; F41.9 Anxiety disorder, unspecified; Z86.73 Personal history of transient ischemic attack (TIA), and cerebral infarction without residual deficits; Z90.49 Acquired absence of other specified parts of digestive tract; Z98.51 Tubal ligation status; I25.2 Old myocardial infarction; Z88.6 Allergy status to analgesic agent; Z82.49 Family history of ischemic heart disease and other diseases of the circulatory system; Z83.3 Family history of diabetes mellitus; Z98.84 Bariatric surgery status; Z95.0 Presence of cardiac pacemaker; Z79.899 Other long term (current) drug therapy
CPT/HCPCS: 36415; 71045; 80053; 80307; 81001; 83605; 83690; 83735; 83880; 84484; 85025; 85610; 85730; 86803; 87081; 87340; 93005; 93306; G0378; J2405; J3490